=== PATIENT | female | born 1960 | race Caucasian/White ===

== ENCOUNTER 2020-08-24 13:48 | Inpatient (IN) | payer OTHER ==
[~2020-08-24] VITALS: Ht 160 cm; Wt 33.6 kg
--- NOTE | 2020-08-24 14:37 | Emergency Room Report ---
History of Present Illness General Chief Complaint: Abnormal Labs Source: Patient, Medical Record, EMS Present Illness HPI Disclaimer: Please note that this report is being documented using idioON technology. This can lead to erroneous entry secondary to incorrect interpretation by the dictating instrument. HPI: 60-year-old female presents from nursing facility for evaluation of anemia. Patient has a history of chronic anemia has required transfusion in the past. Reportedly hemoglobin is 7.1 based on recent labs. She was negative for COVID- 19 on 08/19/2020 according to accompanying paperwork. History of hypertension, GERD, peripheral neuropathy and nicotine dependence. Denies fall, pain or injury. Does not take blood thinners. She does have chronic bleeding from a persistent open wound over the past 2 years of the left ear. This is intermittent and denies any long-term bleeding events. 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 EOMI. Cardiovascular: RRR. S1 and S2 normal. No murmur appreciated Resp: Normal work of breathing. No cough, wheezing or crackles appreciated Abdomen: Abdomen is soft, nondistended. Nontender Skin: There is an abrasion over the left earlobe. Hemostatic MSK: Normal tone and bulk. Moving all extremities. No obvious deformity. Neuro: Awake and alert. Mentating appropriately. Procedures Critical Care Time Critical Care Time Total critical care time: Approximately 45 minutes Due to a high probability of clinically significant, life threatening deterioration, the patient required the highest level of preparedness to intervene emergently and I personally spent this critical care time directly and personally managing the patient. This critical care time included obtaining a history, examining the patient, pulse oximetry, ordering and reviewing studies, ordering treatments, evaluating response to treatment and updating management plan as needed, frequent reassessment and discussion with other providers as well as arranging for ultimate disposition. This critical to care time was performed to assess and manage the high probability of life-threatening deterioration that could result in multiorgan failure. This critical care time is separate from the separately billable procedures and treating other patients. Medical Decision Making Diagnostic Impression: Primary Impression: Acute anemia Additional Impression: UTI (urinary tract infection) ER Course 60-year-old female presents for anemia requiring transfusion. Vital signs stable on arrival and no evidence of active bleeding. Hemoglobin is low and will order 2 units for transfusion. Concern for urinary tract infection as well. Treated ceftriaxone. Admitted to her PMD, Dr. Martinez. Laboratory Tests Test 08/24/20 15:10 08/24/20 16:45 White Blood Count 4.7 K/UL (4.8-10.8) L Red Blood Count 2.72 M/UL (4.20-5.40) L Hemoglobin 7.6 G/DL (12.0-16.0) L Hematocrit 23.8 % (37.0-47.0) L Mean Corpuscular Volume 88 FL (80-99) Mean Corpuscular Hemoglobin 27.9 PG (27.0-31.0) Mean Corpuscular Hemoglobin Concent 31.9 G/DL (32.0-36.0) L Red Cell Distribution Width 16.4 % (11.6-14.8) H Platelet Count 425 K/UL (150-450) Mean Platelet Volume 5.1 FL (6.5-10.1) L Neutrophils (%) (Auto) % (45.0-75.0) Lymphocytes (%) (Auto) % (20.0-45.0) Monocytes (%) (Auto) % (1.0-10.0) Eosinophils (%) (Auto) % (0.0-3.0) Basophils (%) (Auto) % (0.0-2.0) Differential Total Cells Counted 100 Neutrophils % (Manual) 59 % (45-75) Lymphocytes % (Manual) 34 % (20-45) Monocytes % (Manual) 2 % (1-10) Eosinophils % (Manual) 3 % (0-3) Basophils % (Manual) 0 % (0-2) Band Neutrophils 2 % (0-8) Platelet Estimate Increased H Platelet Morphology Normal Hypochromasia 1+ Anisocytosis 1+ Prothrombin Time 10.8 SEC (9.30-11.50) Prothrombin Time INR 1.0 (0.9-1.1) Activated Partial Thromboplast Time 27 SEC (23-33) Sodium Level 143 MMOL/L (136-145) Potassium Level 4.5 MMOL/L (3.5-5.1) Chloride Level 113 MMOL/L (98-107) H Carbon Dioxide Level 23 MMOL/L (21-32) Anion Gap 7 mmol/L (5-15) Blood Urea Nitrogen 25 mg/dL (7-18) H Creatinine 1.0 MG/DL (0.55-1.30) Estimated Glomerular Filtration Rate 56.2 mL/min (>60) Glucose Level 113 MG/DL (74-106) H Calcium Level 8.0 MG/DL (8.5-10.1) L Iron Level 86 ug/dL (50-175) Total Iron Binding Capacity 196 ug/dL (250-450) L Percent Iron Saturation 44 % (15-50) Unsaturated Iron Binding 110 ug/dL (112-346) L Total Bilirubin 0.2 MG/DL (0.2-1.0) Aspartate Amino Transferase (AST) 19 U/L (15-37) Alanine Aminotransferase (ALT) 26 U/L (12-78) Alkaline Phosphatase 109 U/L (46-116) Total Protein 7.7 G/DL (6.4-8.2) Albumin 1.4 G/DL (3.4-5.0) L Globulin 6.3 g/dL Albumin/Globulin Ratio 0.2 (1.0-2.7) L Lipase 116 U/L (73-393) Urine Color Pale yellow Urine Appearance Cloudy Urine pH 6 (4.5-8.0) Urine Specific [place] 1.015 (1.005-1.035) Urine Protein 2+ (NEGATIVE) H Urine Glucose (UA) Negative (NEGATIVE) Urine Ketones Negative (NEGATIVE) Urine Blood 3+ (NEGATIVE) H Urine Nitrite Positive (NEGATIVE) H Urine Bilirubin Negative (NEGATIVE) Urine Urobilinogen Normal MG/DL (0.0-1.0) Urine Leukocyte Esterase 3+ (NEGATIVE) H Urine RBC 15-20 /HPF (0 - 2) H Urine WBC Tntc /HPF (0 - 2) H Urine Squamous Epithelial Cells Moderate /LPF (NONE/OCC) H Urine Bacteria Many /HPF (NONE) H Last Vital Signs Date Time Temp Pulse Resp B/P (MAP) Pulse Ox O2 Delivery O2 Flow Rate FiO2 08/24/20 13:48 98.1 71 16 102/64 (77) 99 Room Air Disposition: ADMITTED INPATIENT Condition: Stable John Noland MD Aug 24, 2020 14:37
[2020-08-24] MEDS ORDERED: MULTIPLE VITAM1 EAC6 PO (14:58)
[2020-08-24] MEDS ORDERED: MIRTAZAPINE7.5 MG ORAL (14:58)
[2020-08-24] MEDS ORDERED: FLUOCINONIDE-E15 G1 TP (14:58)
[2020-08-24] MEDS ORDERED: SENNA LAXATIVE8.6 MG PO (14:58)
[2020-08-24] MEDS ORDERED: ACETAMINOPHEN325 M1 ORAL (14:58)
[2020-08-24] MEDS ORDERED: DOCUSATE SODIU100 MG ORAL (14:58)
[2020-08-24] MEDS ORDERED: TRIAMCINOLONE A15 G2 TP (14:58)
[2020-08-24] MEDS ORDERED: GABAPENTIN100 MG ORAL (14:58)
[2020-08-24] MEDS ORDERED: AQUAPHOR99 GM TP (14:58)
[2020-08-24] MEDS ORDERED: VITAMIN B-1100 MG ORAL (14:58)
[2020-08-24] MEDS ORDERED: MIRALAX17 G2 ORAL (14:58)
[2020-08-24] MEDS ORDERED: DIPHENHYDRAMINE25 M1 ORAL (14:58)
[2020-08-24] MEDS ORDERED: OXYCODONE HCL5 M2 ORAL (14:58)
[2020-08-24] MEDS ORDERED: ATIVAN0.5 MG ORAL (14:58)
[2020-08-24] MEDS ORDERED: ZOFRAN4 M3 ORAL (14:58)
[2020-08-24] MEDS ORDERED: FAMOTIDINE20 MG ORAL (14:58)
[2020-08-24 15:36] LABS: POTASSIUM 4.5 MMOL/L (3.5-5.1)
[2020-08-24 15:39] LABS: HEMATOCRIT 23.8 % (37.0-47.0); HEMOGLOBIN 7.6 G/DL (12.0-16.0); MEAN CORPUSCULAR VOLUME 88 FL (80-99); PLATELET COUNT 425 K/UL (150-450); RED BLOOD COUNT 2.72 M/UL (4.20-5.40); RED CELL DISTRIBUTION WIDTH 16.4 % (11.6-14.8); WHITE BLOOD COUNT 4.7 K/UL (4.8-10.8)
[2020-08-24 15:40] LABS: ALBUMIN 1.4 G/DL (3.4-5.0); ALBUMIN/GLOBULIN RATIO 0.2 (1.0-2.7); BILIRUBIN,TOTAL 0.2 MG/DL (0.2-1.0)
[2020-08-24 15:44] LABS: % IRON SATURATION 44 % (15-50); IRON 86 ug/dL (50-175); TOTAL IRON BINDING CAPACITY 196 ug/dL (250-450)
[2020-08-24 15:51] VITALS: BP 124/86
--- NOTE | 2020-08-24 17:01 | History and Physical ---
History of Present Illness General Date patient seen: Aug 24, 2020 Time patient seen: 17:01 Reason for Hospitalization: Abnormal Labs Present Illness HPI 60-year-old female presents from nursing facility for evaluation of anemia. Patient has a history of chronic anemia, left ear wound with chronic blood loss, hypertension, GERD, peripheral neuropathy and nicotine dependence. Reportedly hemoglobin is 7.1 based on recent labs. She does complain of general weakness, fatigue and light headedness. In ED she was found to have Hb of 7.6, ordered for 2 units of RBC and referred for medical admission. FHx: No premature CAD SHx: SNF resident Allergies: Coded Allergies: MORPHINE (Verified Allergy, Unknown, 08/24/20) SULFAMETHOXAZOLE (Verified Allergy, Unknown, 08/24/20) TRIMETHOPRIM (Verified Allergy, Unknown, 08/24/20) COVID-19 Screening Contact w/high risk pt: No Recent Travel to affected area: No Experienced COVID-19 symptoms?: No Medication History Scheduled Docusate Sodium* (Docusate Sodium*), 100 MG ORAL TWICE A DAY, (Reported) Famotidine* (Pepcid 20mg tablet*), 20 MG ORAL TWICE A DAY, (Reported) Fluocinonide/Emollient (Fluocinonide-E 0.05% Cream), 15 GM TP DAILY, (Reported) Gabapentin* (Gabapentin*), 300 MG ORAL THREE TIMES A DAY, (Reported) Lorazepam* (Ativan*), 0.5 MG ORAL Q4HR, (Reported) Mirtazapine* (Mirtazapine*), 7.5 MG ORAL BEDTIME, (Reported) Multivitamin (Multiple Vitamins), 1 EACH PO DAILY, (Reported) Petrolatum,White (Aquaphor), 99 GM TP Q6HR, (Reported) Polyethylene Glycol 3350* (Miralax*), 17 GM ORAL DAILY, (Reported) Sennosides (Senna Laxative), 17.2 MG PO BEDTIME, (Reported) Thiamine Hcl* (Vitamin B-1*), 200 MG ORAL DAILY, (Reported) Triamcinolone Acetonide (Triamcinolone Acetonide 0.1% Oint*), 0 TP THREE TIMES A DAY, (Reported) Scheduled PRN Acetaminophen* (Acetaminophen 325MG Tablet*), 650 MG ORAL Q4H PRN for fever, (Reported) Diphenhydramine Hcl* (Diphenhydramine Hcl*), 25 MG ORAL Q6H PRN for Itching, (Reported) Ondansetron* (Zofran*), 4 MG ORAL Q8HR PRN for Nausea & Vomiting, (Reported) Oxycodone Hcl* (Oxycodone Hcl*), 5 MG ORAL Q4H PRN for For Pain, (Reported) Patient History Healthcare decision maker Resuscitation status Advanced Directive on File Review of Systems Constitutional: Reports: weakness; Denies: chills, sweats Respiratory: Denies: cough Cardiovascular: Denies: chest pain Gastrointestinal: Denies: abdominal pain Musculoskeletal: Denies: back pain Skin: Denies: rash Hematologic/Lymphatic: Reports: anemia, easy bleeding Physical Exam General Appearance: alert, alert oriented x3, other - Malnourished with bitemporal wasting HEENT: other - Left ear chronic wound Neck: supple, normal inspection Respiratory/Chest: lungs clear, normal breath sounds, no respiratory distress Cardiovascular/Chest: normal rate, regular rhythm Abdomen: non tender, soft Extremities: non-tender, normal inspection Neurologic: video intern II-XII grossly normal, no motor/sensory deficits, alert Last 24 Hour Vital Signs Date Time Temp Pulse Resp B/P (MAP) Pulse Ox O2 Delivery O2 Flow Rate FiO2 08/24/20 15:51 76 18 124/86 100 Room Air 08/24/20 13:48 98.1 71 16 102/64 (77) 99 Room Air Laboratory Tests Test 08/24/20 15:10 White Blood Count 4.7 K/UL (4.8-10.8) L Red Blood Count 2.72 M/UL (4.20-5.40) L Hemoglobin 7.6 G/DL (12.0-16.0) L Hematocrit 23.8 % (37.0-47.0) L Mean Corpuscular Volume 88 FL (80-99) Mean Corpuscular Hemoglobin 27.9 PG (27.0-31.0) Mean Corpuscular Hemoglobin Concent 31.9 G/DL (32.0-36.0) L Red Cell Distribution Width 16.4 % (11.6-14.8) H Platelet Count 425 K/UL (150-450) Mean Platelet Volume 5.1 FL (6.5-10.1) L Neutrophils (%) (Auto) % (45.0-75.0) Lymphocytes (%) (Auto) % (20.0-45.0) Monocytes (%) (Auto) % (1.0-10.0) Eosinophils (%) (Auto) % (0.0-3.0) Basophils (%) (Auto) % (0.0-2.0) Differential Total Cells Counted 100 Neutrophils % (Manual) 59 % (45-75) Lymphocytes % (Manual) 34 % (20-45) Monocytes % (Manual) 2 % (1-10) Eosinophils % (Manual) 3 % (0-3) Basophils % (Manual) 0 % (0-2) Band Neutrophils 2 % (0-8) Platelet Estimate Increased H Platelet Morphology Normal Hypochromasia 1+ Anisocytosis 1+ Prothrombin Time 10.8 SEC (9.30-11.50) Prothromb Time International Ratio 1.0 (0.9-1.1) Activated Partial Thromboplast Time 27 SEC (23-33) Sodium Level 143 MMOL/L (136-145) Potassium Level 4.5 MMOL/L (3.5-5.1) Chloride Level 113 MMOL/L (98-107) H Carbon Dioxide Level 23 MMOL/L (21-32) Anion Gap 7 mmol/L (5-15) Blood Urea Nitrogen 25 mg/dL (7-18) H Creatinine 1.0 MG/DL (0.55-1.30) Estimat Glomerular Filtration Rate 56.2 mL/min (>60) Glucose Level 113 MG/DL (74-106) H Calcium Level 8.0 MG/DL (8.5-10.1) L Iron Level 86 ug/dL (50-175) Total Iron Binding Capacity 196 ug/dL (250-450) L Percent Iron Saturation 44 % (15-50) Unsaturated Iron Binding 110 ug/dL (112-346) L Total Bilirubin 0.2 MG/DL (0.2-1.0) Aspartate Amino Transf (AST/SGOT) 19 U/L (15-37) Alanine Aminotransferase (ALT/SGPT) 26 U/L (12-78) Alkaline Phosphatase 109 U/L (46-116) Total Protein 7.7 G/DL (6.4-8.2) Albumin 1.4 G/DL (3.4-5.0) L Globulin 6.3 g/dL Albumin/Globulin Ratio 0.2 (1.0-2.7) L Lipase 116 U/L (73-393) Height (Feet): 5 Height (Inches): 2.00 Weight (Pounds): 90 Assessment/Plan Assessment/Plan: 60-year-old female presents from nursing facility for evaluation of acute (symptomatic) on chronic anemia #Symptomatic acute on chronic anemia #Possibly related to chronic blood loss from left ear wound -admit to medical service -getting 2 units RBC in ED -monitor CBC -PT/OT eval -Fall and aspiration precautions #Chronic pain #Peripheral neuropathy -cont outpatient pain regimen #Bitemporal wasting, hypoalbuminemia #Severe protein calorie malnutrition -RD eval -Ensure TID I [id number] on this patient's case, and 20minutes was dedicated to counseling and/or care coordination. D/w RN, consultants Flaquito Villanueva MD Aug 24, 2020 17:01
[2020-08-24] MEDS ORDERED: LORazepam 0.5mg tab ORAL PRN (17:15)
[2020-08-24 17:30] VITALS: BP 110/89
--- NOTE | 2020-08-24 17:37 | NUR ---
pt arrived for low H&H. pt A&Ox4, VSS. pt placed in private room on continuous cardiac/O2 monitor. pt has 2 IVs placed, labs sent. pt integumentary skin present with scabs all over body from itching per pt. pt in bed, resting. states pain in skin. notified. repeat pink top sent to lab per lab request.
[2020-08-24 17:46] LABS: APPEARANCE,URINE CLOUDY; BILIRUBIN, URINE NEGATIVE (NEGATIVE); COLOR,URINE PALE YELLOW; GLUCOSE, URINE (UA) NEGATIVE (NEGATIVE); KETONES,URINE NEGATIVE (NEGATIVE); LEUKOCYTE ESTERASE ,URINE 3+ (NEGATIVE); NITRITE,URINE POSITIVE (NEGATIVE); PH,URINE 6 (4.5-8.0); PROTEIN,URINE 2+ (NEGATIVE); UROBILINOGEN,URINE NORMAL MG/DL (0.0-1.0)
[2020-08-24] MEDS ORDERED: cefTRIAXone 1 GM in NS 55 ML IVPB ONE (18:00)
[2020-08-24 19:00] VITALS: BP 104/78
--- NOTE | 2020-08-24 19:08 | NUR ---
blood transfusion started at 1899. cosign with Sondra MCNAIR. pt on continuous cardiac/O2 monitor. pt & MD signed consent. blood picked up and verified with lab. 1899 vitals: temp 98.7, HR 78, O2 100% RA, BP 104/78
[2020-08-24 19:15] VITALS: BP 103/61
[2020-08-24 20:30] VITALS: BP 101/54
--- NOTE | 2020-08-24 20:30 | NUR ---
TRANSFER TO FLOOR: Patient transferred to [facility] as ordered, per MD . Report given to Ok. Belongings sent with patient belongings form filled and signed
[2020-08-24] MEDS: Docusate 100mg cap ORAL SCH (21:17)
[2020-08-24] MEDS: Morphine Sulfate 2mg/ml Inj(IV/IM USE ONLY) IVP PRN (22:08)
[2020-08-25] VITALS: BP 130/76
[2020-08-25] MEDS: Morphine Sulfate 2mg/ml Inj(IV/IM USE ONLY) IVP PRN (02:50)
[2020-08-25 04:00] VITALS: BP 130/73
[2020-08-25 06:48] LABS: BASOPHILS % (AUTO) 0.9 % (0.0-2.0); EOSINOPHILS % (AUTO) 1.6 % (0.0-3.0); HEMATOCRIT 36.1 % (37.0-47.0); HEMOGLOBIN 11.7 G/DL (12.0-16.0); LYMPHOCYTES % (AUTO) 15.5 % (20.0-45.0); MEAN CORPUSCULAR VOLUME 88 FL (80-99); NEUTROPHILS % (AUTO) 75.1 % (45.0-75.0); PLATELET COUNT 378 K/UL (150-450); RED BLOOD COUNT 4.12 M/UL (4.20-5.40); WHITE BLOOD COUNT 7.6 K/UL (4.8-10.8)
[2020-08-25 06:51] LABS: ANION GAP 7 mmol/L (5-15); BLOOD UREA NITROGEN 20 mg/dL (7-18); CALCIUM 8.3 MG/DL (8.5-10.1); CARBON DIOXIDE 23 MMOL/L (21-32); CHLORIDE 112 MMOL/L (98-107); CREATININE 0.8 MG/DL (0.55-1.30); POTASSIUM 4.1 MMOL/L (3.5-5.1); SODIUM 141 MMOL/L (136-145)
--- NOTE | 2020-08-25 07:00 | NUR ---
nurse notes received patient in bed, asleep no sign of distress, on fall precaution call light w/n reach, will continue to monitor patient condition XU montemayor
--- NOTE | 2020-08-25 07:14 | NUR ---
NURSE HAND-OFF: Important Events on Shift:[]2 units PRBC transfused Patient Status: [] Diet: []Regular Pending Orders: [] Pending Results/Labs:[] Pending MD notification:[] Latest Vital Signs: Temperature 98.5 , Pulse 86 , B/P 130 /73 , Respiratory Rate 20 , O2 SAT 94 , Room Air, O2 Flow Rate . Vital Sign Comment: [] Latest Junior Fall Score: 45 Fall Risk: High Risk Safety Measures: Call light Within Reach, Bed Alarm Zone 2, Side Rails Side Rails x2, Bed position Low and Locked. Fall Precautions: Yellow Socks Report given to [].
--- NOTE | 2020-08-25 07:28 | General Progress Note ---
Subjective ROS Limited/Unobtainable: Yes Allergies: Coded Allergies: MORPHINE (Verified Allergy, Unknown, 08/24/20) SULFAMETHOXAZOLE (Verified Allergy, Unknown, 08/24/20) TRIMETHOPRIM (Verified Allergy, Unknown, 08/24/20) Objective Last 24 Hour Vital Signs Date Time Temp Pulse Resp B/P (MAP) Pulse Ox O2 Delivery O2 Flow Rate FiO2 08/25/20 04:00 98.5 86 20 130/73 (92) 94 08/25/20 03:20 98.5 08/25/20 00:00 98.5 86 18 130/76 (94) 99 08/24/20 22:40 98.4 08/24/20 21:07 Room Air 08/24/20 20:30 98.4 82 18 101/54 (70) 99 08/24/20 19:15 98.7 83 18 103/61 99 Room Air 08/24/20 19:15 83 18 103/61 99 Room Air 08/24/20 19:00 98.7 78 18 104/78 100 Room Air 08/24/20 17:30 76 18 110/89 100 Room Air 08/24/20 15:51 76 18 124/86 100 Room Air 08/24/20 13:48 98.1 71 16 102/64 (77) 99 Room Air Intake and Output 08/24/20 08/25/20 19:00 07:00 Intake Total 500 ml Balance 500 ml Intake Oral 0 ml Blood Product 500 ml # Voids 2 Laboratory Tests 08/24/20 15:10: White Blood Count 4.7L, Red Blood Count 2.72L, Hemoglobin 7.6L, Hematocrit 23.8L , Mean Corpuscular Volume 88, Mean Corpuscular Hemoglobin 27.9, Mean Corpuscular Hemoglobin Concent 31.9L, Red Cell Distribution Width 16.4H, Platelet Count 425, Mean Platelet Volume 5.1L, Neutrophils (%) (Auto) , Lymphocytes (%) (Auto) , Monocytes (%) (Auto) , Eosinophils (%) (Auto) , Basophils (%) (Auto) , Differential Total Cells Counted 100, Neutrophils % (Manual) 59, Lymphocytes % (Manual) 34, Monocytes % (Manual) 2, Eosinophils % (Manual) 3, Basophils % (Manual) 0, Band Neutrophils 2, Platelet Estimate IncreasedH, Platelet Morphology Normal, Hypochromasia 1+, Anisocytosis 1+, Prothrombin Time 10.8, Pr othromb Time International Ratio 1.0, Activated Partial Thromboplast Time 27, Sodium Level 143, Potassium Level 4.5, Chloride Level 113H, Carbon Dioxide Level 23, Anion Gap 7, Blood Urea Nitrogen 25H, Creatinine 1.0, Estimat Glomerular Filtration Rate 56.2, Glucose Level 113H, Calcium Level 8.0L, Iron Level 86, Total Iron Binding Capacity 196L, Percent Iron Saturation 44, Unsaturated Iron Binding 110L, Total Bilirubin 0.2, Aspartate Amino Transf (AST/SGOT) 19, Alanine Aminotransferase (ALT/SGPT) 26, Alkaline Phosphatase 109, Total Protein 7.7, Albumin 1.4L, Globulin 6.3, Albumin/Globulin Ratio 0.2L, Lipase 116 08/24/20 16:45: Urine Color Pale yellow, Urine Appearance Cloudy, Urine pH 6, Urine Specific [place] 1.015, Urine Protein 2+H, Urine Glucose (UA) Negative, Urine Ketones Negative, Urine Blood 3+H, Urine Nitrite PositiveH, Urine Bilirubin Negative, Urine Urobilinogen Normal, Urine Leukocyte Esterase 3+H, Urine RBC 15-20H, Urine WBC TntcH, Urine Squamous Epithelial Cells ModerateH, Urine Bacteria ManyH 08/25/20 05:05: White Blood Count 7.6#, Red Blood Count 4.12L, Hemoglobin 11.7#L, Hematocrit 36.1#L, Mean Corpuscular Volume 88, Mean Corpuscular Hemoglobin 28.5, Mean Corpuscular Hemoglobin Concent 32.5, Red Cell Distribution Width 15.0H, Platelet Count 378, Mean Platelet Volume 4.5L, Neutrophils (%) (Auto) 75.1H, Lymphocytes (%) (Auto) 15.5L, Monocytes (%) (Auto) 7.0, Eosinophils (%) (Auto) 1.6, Basophils (%) (Auto) 0.9, Sodium Level 141, Potassium Level 4.1, Chloride Level 112H, Carbon Dioxide Level 23, Anion Gap 7, Blood Urea Nitrogen 20H, Creatinine 0.8, Estimat Glomerular Filtration Rate > 60, Glucose Level 73L, Calcium Level 8.3L Height (Feet): 5 Height (Inches): 3.00 Weight (Pounds): 74 General Appearance: alert EENT: normal ENT inspection Neck: supple Cardiovascular: normal rate Respiratory/Chest: decreased breath sounds Abdomen: hypoactive bowel sounds Extremities: non-tender Assessment/Plan Problem List: (1) GERD (gastroesophageal reflux disease) ICD Codes: K21.9 - Gastro-esophageal reflux disease without esophagitis SNOMED: 603262813 (2) Cachexia ICD Codes: R64 - Cachexia SNOMED: 981081616 (3) Neuropathy ICD Codes: G62.9 - Polyneuropathy, unspecified SNOMED: 591258057 (4) Acute anemia ICD Codes: D64.9 - Anemia, unspecified SNOMED: 5355682, 197947681 (5) UTI (urinary tract infection) ICD Codes: N39.0 - Urinary tract infection, site not specified SNOMED: 88315480 Assessment/Plan: cea plan EGd and colonoscopy stool ob s/p blood transfusion abx for UTI plan CT if esophagogastroduodenoscopy and ccolonoscopy is neg James Alejandre MD Aug 25, 2020 07:28
[2020-08-25] MEDS ORDERED: Piperacillin/Tazobactam 2.25 GM in D5W 55 ML IV SCH (07:30)
[2020-08-25 08:00] VITALS: BP 143/83
[2020-08-25] MEDS: Docusate 100mg cap ORAL SCH ×2 (08:31→20:43)
[2020-08-25] MEDS: Thiamine 100mg tab ORAL SCH (08:32)
[2020-08-25] MEDS: HYDROmorphone 2mg tab ORAL PRN ×3 (08:33→18:00)
[2020-08-25] MEDS: Zoysn 3.37gm in NS 100ML IVPB SCH ×2 (08:33→17:23)
--- NOTE | 2020-08-25 09:25 | NUR ---
PT NOTE Attempted to see patient for PT evaluation. Patient declining to participate with PT due to c/o headache, requesting that therapist return tomorrow. Saumya RN notified, will follow up tomorrow.
--- NOTE | 2020-08-25 09:47 | Consultation ---
History of Present Illness General Date patient seen: Aug 25, 2020 Reason for Hospitalization: Abnormal Labs Present Illness HPI HPI: 60-year-old female presents from nursing facility for evaluation of anemia, generalized pain, abd pain, face pain, headache. Patient has a history of chronic anemia has required transfusion in the past. Reportedly hemoglobin is 7.1 based on recent labs. She was negative for COVID-19 on 08/19/2020 according to accompanying paperwork. History of hypertension, GERD, peripheral neuropathy and nicotine dependence. Denies fall, pain or injury. Does not take blood thinners. She does have chronic bleeding from a persistent open wound over the past 2 years of the left ear. This is intermittent and denies any long-term bleeding events. states she needs more pain medication than the pills. no n/v/f/c. tolerating diet. states 8/10 abd pain cramping generalized. pain ongoing for long time chronic. +flatus. and bm. surgery called to evaluate and assist with care. PMH: GERD, hypertension, anemia, peripheral neuropathy PSH: Reviewed Allergies: Reviewed Social Hx: Reviewed Allergies: Coded Allergies: MORPHINE (Verified Allergy, Unknown, 08/24/20) SULFAMETHOXAZOLE (Verified Allergy, Unknown, 08/24/20) TRIMETHOPRIM (Verified Allergy, Unknown, 08/24/20) COVID-19 Screening Contact w/high risk pt: No Recent Travel to affected area: No Experienced COVID-19 symptoms?: No Medication History Scheduled Docusate Sodium* (Docusate Sodium*), 100 MG ORAL TWICE A DAY, (Reported) Famotidine* (Pepcid 20mg tablet*), 20 MG ORAL TWICE A DAY, (Reported) Fluocinonide/Emollient (Fluocinonide-E 0.05% Cream), 15 GM TP DAILY, (Reported) Gabapentin* (Gabapentin*), 300 MG ORAL THREE TIMES A DAY, (Reported) Lorazepam* (Ativan*), 0.5 MG ORAL Q4HR, (Reported) Mirtazapine* (Mirtazapine*), 7.5 MG ORAL BEDTIME, (Reported) Multivitamin (Multiple Vitamins), 1 EACH PO DAILY, (Reported) Petrolatum,White (Aquaphor), 99 GM TP Q6HR, (Reported) Polyethylene Glycol 3350* (Miralax*), 17 GM ORAL DAILY, (Reported) Sennosides (Senna Laxative), 17.2 MG PO BEDTIME, (Reported) Thiamine Hcl* (Vitamin B-1*), 200 MG ORAL DAILY, (Reported) Triamcinolone Acetonide (Triamcinolone Acetonide 0.1% Oint*), 0 TP THREE TIMES A DAY, (Reported) Scheduled PRN Acetaminophen* (Acetaminophen 325MG Tablet*), 650 MG ORAL Q4H PRN for fever, (Reported) Diphenhydramine Hcl* (Diphenhydramine Hcl*), 25 MG ORAL Q6H PRN for Itching, (Reported) Ondansetron* (Zofran*), 4 MG ORAL Q8HR PRN for Nausea & Vomiting, (Reported) Oxycodone Hcl* (Oxycodone Hcl*), 5 MG ORAL Q4H PRN for For Pain, (Reported) Patient History History Provided By: Patient, Medical Record, PMD Healthcare decision maker N Resuscitation status Advanced Directive on File Past Medical/Surgical History Past Medical/Surgical History: (1) UTI (urinary tract infection) (2) Cachexia (3) Neuropathy (4) GERD (gastroesophageal reflux disease) (5) Acute anemia Review of Systems Review of Symptoms General ROS: no weight loss or fever Psychological ROS: no depression or mood changes, no memory loss Ophthalmic ROS: no visual changes or eye irritation ENT ROS: no nasal congestion, hearing loss, dizziness Allergy and Immunology ROS: no allergic symptoms or urticaria Hematological and Lymphatic ROS: no swollen glands, unusual bleeding or bruising Endocrine ROS: no polyuria, polydipsia, weight changes, temperature intolerance Respiratory ROS: no cough, shortness of breath, or wheezing Cardiovascular ROS: no chest pain or dyspnea on exertion Gastrointestinal ROS: denies abdominal pain, bright red blood in stool. Musculoskeletal ROS: no myalgias or arthralgias Neurological ROS: no TIA or stroke symptoms Dermatological ROS: no new or changing skin lesions, rashes or pruritis c/o pain "everywhere" Physical Exam Physical Exam General appearance: alert, cooperative, no distress, appears stated age Head: Normocephalic, without obvious abnormality, atraumatic Eyes: conjunctivae/corneas clear. PERRL, EOM's intact. Fundi benign Throat: Lips, mucosa, and tongue normal. Teeth and gums normal Neck: supple, symmetrical, trachea midline, no adenopathy, thyroid: not enlarged, symmetric, no tenderness/mass/nodules, no carotid bruit and no JVD Lungs: clear to auscultation bilaterally Heart: regular rate and rhythm, S1, S2 normal, no murmur, click, rub or gallop Abdomen: soft, non-tender. Bowel sounds normal. No masses, no organomegaly Extremities: extremities normal, atraumatic, no cyanosis or edema Pulses: 2+ and symmetric Skin: Skin color, texture, turgor normal. No rashes or lesions Neurologic: Grossly normal Last 24 Hour Vital Signs Date Time Temp Pulse Resp B/P (MAP) Pulse Ox O2 Delivery O2 Flow Rate FiO2 08/25/20 04:00 98.5 86 20 130/73 (92) 94 08/25/20 03:20 98.5 08/25/20 00:00 98.5 86 18 130/76 (94) 99 08/24/20 22:40 98.4 08/24/20 21:07 Room Air 08/24/20 20:30 98.4 82 18 101/54 (70) 99 08/24/20 19:15 98.7 83 18 103/61 99 Room Air 08/24/20 19:15 83 18 103/61 99 Room Air 08/24/20 19:00 98.7 78 18 104/78 100 Room Air 08/24/20 17:30 76 18 110/89 100 Room Air 08/24/20 15:51 76 18 124/86 100 Room Air 08/24/20 13:48 98.1 71 16 102/64 (77) 99 Room Air Intake and Output 08/24/20 08/25/20 19:00 07:00 Intake Total 500 ml Balance 500 ml Intake Oral 0 ml Blood Product 500 ml # Voids 2 Laboratory Tests Test 08/24/20 15:10 08/24/20 16:45 08/25/20 05:05 White Blood Count 4.7 K/UL (4.8-10.8) L 7.6 K/UL (4.8-10.8) # Red Blood Count 2.72 M/UL (4.20-5.40) L 4.12 M/UL (4.20-5.40) L Hemoglobin 7.6 G/DL (12.0-16.0) L 11.7 G/DL (12.0-16.0) #L Hematocrit 23.8 % (37.0-47.0) L 36.1 % (37.0-47.0) #L Mean Corpuscular Volume 88 FL (80-99) 88 FL (80-99) Mean Corpuscular Hemoglobin 27.9 PG (27.0-31.0) 28.5 PG (27.0-31.0) Mean Corpuscular Hemoglobin Concent 31.9 G/DL (32.0-36.0) L 32.5 G/DL (32.0-36.0) Red Cell Distribution Width 16.4 % (11.6-14.8) H 15.0 % (11.6-14.8) H Platelet Count 425 K/UL (150-450) 378 K/UL (150-450) Mean Platelet Volume 5.1 FL (6.5-10.1) L 4.5 FL (6.5-10.1) L Neutrophils (%) (Auto) % (45.0-75.0) 75.1 % (45.0-75.0) H Lymphocytes (%) (Auto) % (20.0-45.0) 15.5 % (20.0-45.0) L Monocytes (%) (Auto) % (1.0-10.0) 7.0 % (1.0-10.0) Eosinophils (%) (Auto) % (0.0-3.0) 1.6 % (0.0-3.0) Basophils (%) (Auto) % (0.0-2.0) 0.9 % (0.0-2.0) Differential Total Cells Counted 100 Neutrophils % (Manual) 59 % (45-75) Lymphocytes % (Manual) 34 % (20-45) Monocytes % (Manual) 2 % (1-10) Eosinophils % (Manual) 3 % (0-3) Basophils % (Manual) 0 % (0-2) Band Neutrophils 2 % (0-8) Platelet Estimate Increased H Platelet Morphology Normal Hypochromasia 1+ Anisocytosis 1+ Prothrombin Time 10.8 SEC (9.30-11.50) Prothromb Time International Ratio 1.0 (0.9-1.1) Activated Partial Thromboplast Time 27 SEC (23-33) Sodium Level 143 MMOL/L (136-145) 141 MMOL/L (136-145) Potassium Level 4.5 MMOL/L (3.5-5.1) 4.1 MMOL/L (3.5-5.1) Chloride Level 113 MMOL/L (98-107) H 112 MMOL/L (98-107) H Carbon Dioxide Level 23 MMOL/L (21-32) 23 MMOL/L (21-32) Anion Gap 7 mmol/L (5-15) 7 mmol/L (5-15) Blood Urea Nitrogen 25 mg/dL (7-18) H 20 mg/dL (7-18) H Creatinine 1.0 MG/DL (0.55-1.30) 0.8 MG/DL (0.55-1.30) Estimat Glomerular Filtration Rate 56.2 mL/min (>60) > 60 mL/min (>60) Glucose Level 113 MG/DL (74-106) H 73 MG/DL (74-106) L Calcium Level 8.0 MG/DL (8.5-10.1) L 8.3 MG/DL (8.5-10.1) L Iron Level 86 ug/dL (50-175) Total Iron Binding Capacity 196 ug/dL (250-450) L Percent Iron Saturation 44 % (15-50) Unsaturated Iron Binding 110 ug/dL (112-346) L Total Bilirubin 0.2 MG/DL (0.2-1.0) Aspartate Amino Transf (AST/SGOT) 19 U/L (15-37) Alanine Aminotransferase (ALT/SGPT) 26 U/L (12-78) Alkaline Phosphatase 109 U/L (46-116) Total Protein 7.7 G/DL (6.4-8.2) Albumin 1.4 G/DL (3.4-5.0) L Globulin 6.3 g/dL Albumin/Globulin Ratio 0.2 (1.0-2.7) L Lipase 116 U/L (73-393) Urine Color Pale yellow Urine Appearance Cloudy Urine pH 6 (4.5-8.0) Urine Specific [place] 1.015 (1.005-1.035) Urine Protein 2+ (NEGATIVE) H Urine Glucose (UA) Negative (NEGATIVE) Urine Ketones Negative (NEGATIVE) Urine Blood 3+ (NEGATIVE) H Urine Nitrite Positive (NEGATIVE) H Urine Bilirubin Negative (NEGATIVE) Urine Urobilinogen Normal MG/DL (0.0-1.0) Urine Leukocyte Esterase 3+ (NEGATIVE) H Urine RBC 15-20 /HPF (0 - 2) H Urine WBC Tntc /HPF (0 - 2) H Urine Squamous Epithelial Cells Moderate /LPF (NONE/OCC) H Urine Bacteria Many /HPF (NONE) H Microbiology Date/Time Source Procedure Growth Status 08/24/20 16:45 Urine,Clean Catch Urine Culture - Preliminary Gram Negative Brodie Resulted Height (Feet): 5 Height (Inches): 3.00 Weight (Pounds): 74 Medications Current Medications Medications (Trade) Dose Ordered Sig/Crystal Route PRN Reason Start Time Stop Time Status Last Admin Dose Admin Acetaminophen (Tylenol) 650 mg Q4H PRN ORAL Mild Pain (Pain Scale 1-3) 08/24/20 17:00 09/23/20 16:59 Bisacodyl (Dulcolax) 10 mg HSPRN PRN RECTAL Constipation 08/24/20 17:00 11/22/20 16:59 Dextrose (Dextrose 50%) 25 ml Q30M PRN IV Hypoglycemia 08/24/20 17:00 11/22/20 16:59 Dextrose (Dextrose 50%) 50 ml Q30M PRN IV Hypoglycemia 08/24/20 17:00 11/22/20 16:59 Dextrose/ Electrolytes 1,000 ml @ 75 mls/hr [id number] IV 08/25/20 16:00 09/24/20 15:59 Diphenhydramine HCl (Benadryl) 25 mg Q6H PRN ORAL Itching/Pruritis 08/24/20 17:00 09/23/20 16:59 Docusate Sodium (Colace) 100 mg EVERY 12 HOURS ORAL 08/24/20 21:00 09/23/20 20:59 08/25/20 08:31 Gabapentin (Neurontin) 300 mg THREE TIMES A DAY ORAL 08/24/20 18:00 09/23/20 17:59 08/25/20 08:32 Hydromorphone HCl (Dilaudid) 2 mg Q4H PRN ORAL For Pain 08/25/20 07:30 09/01/20 07:29 08/25/20 08:33 Lorazepam (Ativan) 0.5 mg Q4H PRN ORAL Anxiety 08/24/20 17:15 08/31/20 17:14 Mirtazapine (Remeron) 7.5 mg BEDTIME ORAL 08/24/20 21:00 11/22/20 20:59 08/24/20 21:17 Ondansetron HCl (Zofran) 4 mg Q6H PRN IVP Nausea & Vomiting 08/24/20 17:00 09/23/20 16:59 Pantoprazole (Protonix) 40 mg DAILY ORAL 08/25/20 09:00 09/24/20 08:59 08/25/20 08:32 Piperacillin Sod/ Tazobactam Sod 3.375 gm/Sodium Chloride 110 ml @ 27.5 mls/hr Q8H IVPB 08/25/20 09:00 09/01/20 08:59 08/25/20 08:33 Polyethylene Glycol/ Electrolytes (Golytely) 4,000 ml ONCE ORAL 08/25/20 14:00 08/25/20 23:59 Temazepam (Restoril) 15 mg HSPRN PRN ORAL Insomnia 08/24/20 17:00 08/31/20 16:59 Thiamine HCl (Vitamin B1) 200 mg DAILY ORAL 08/25/20 09:00 09/24/20 08:59 08/25/20 08:32 Assessment/Plan Problem List: (1) Abdominal pain Assessment & Plan: 60F with anemia c/o pain all over including 8/10 abd pain requesting more pain medication IV instead of oral po meds. no n/v/f/c. hungry tolerating diet. passing flatus. transfused prbc and h/h improved. stool studies pending. GI eval noted. abd exam benign. no acute abdomen. soft nt/nd bs+. has bowel function. no acute surgical intervention planned. okay for diet. AM kub. trend labs. will follow with exam and recs. thank you ICD Codes: R10.9 - Unspecified abdominal pain SNOMED: 47256348 (2) UTI (urinary tract infection) ICD Codes: N39.0 - Urinary tract infection, site not specified SNOMED: 98185659 (3) Cachexia ICD Codes: R64 - Cachexia SNOMED: 864366183 (4) Neuropathy ICD Codes: G62.9 - Polyneuropathy, unspecified SNOMED: 719529983 (5) GERD (gastroesophageal reflux disease) ICD Codes: K21.9 - Gastro-esophageal reflux disease without esophagitis SNOMED: 880365060 (6) Acute anemia ICD Codes: D64.9 - Anemia, unspecified SNOMED: 9222400, 501835052 aRmos Nathan Aug 25, 2020 09:47
--- NOTE | 2020-08-25 10:08 | General Progress Note ---
Subjective Date patient seen: Aug 25, 2020 Time patient seen: 07:15 ROS Limited/Unobtainable: No Constitutional: Denies: chills, fever Cardiovascular: Denies: chest pain Respiratory: Denies: cough Gastrointestinal/Abdominal: Denies: abdomen distended, abdominal pain Allergies: Coded Allergies: MORPHINE (Verified Allergy, Unknown, 08/24/20) SULFAMETHOXAZOLE (Verified Allergy, Unknown, 08/24/20) TRIMETHOPRIM (Verified Allergy, Unknown, 08/24/20) Subjective No acute events overnight Asking for Dilaudid instead of morphine Got 2 units RBC with improvement in H&H ALso with abnormal UA and GNR on culture Objective Last 24 Hour Vital Signs Date Time Temp Pulse Resp B/P (MAP) Pulse Ox O2 Delivery O2 Flow Rate FiO2 08/25/20 04:00 98.5 86 20 130/73 (92) 94 08/25/20 03:20 98.5 08/25/20 00:00 98.5 86 18 130/76 (94) 99 08/24/20 22:40 98.4 08/24/20 21:07 Room Air 08/24/20 20:30 98.4 82 18 101/54 (70) 99 08/24/20 19:15 98.7 83 18 103/61 99 Room Air 08/24/20 19:15 83 18 103/61 99 Room Air 08/24/20 19:00 98.7 78 18 104/78 100 Room Air 08/24/20 17:30 76 18 110/89 100 Room Air 08/24/20 15:51 76 18 124/86 100 Room Air 08/24/20 13:48 98.1 71 16 102/64 (77) 99 Room Air Intake and Output0 08/24/20 08/25/20 19:00 07:00 Intake Total 500 ml Balance 500 ml Intake Oral 0 ml Blood Product 500 ml # Voids 2 Laboratory Tests 08/24/20 15:10: White Blood Count 4.7L, Red Blood Count 2.72L, Hemoglobin 7.6L, Hematocrit 23.8L , Mean Corpuscular Volume 88, Mean Corpuscular Hemoglobin 27.9, Mean Corpuscular Hemoglobin Concent 31.9L, Red Cell Distribution Width 16.4H, Platelet Count 425, Mean Platelet Volume 5.1L, Neutrophils (%) (Auto) , Lymphocytes (%) (Auto) , Monocytes (%) (Auto) , Eosinophils (%) (Auto) , Basophils (%) (Auto) , Differential Total Cells Counted 100, Neutrophils % (Manual) 59, Lymphocytes % (Manual) 34, Monocytes % (Manual) 2, Eosinophils % (Manual) 3, Basophils % (Manual) 0, Band Neutrophils 2, Platelet Estimate IncreasedH, Platelet Morphology Normal, Hypochromasia 1+, Anisocytosis 1+, Prothrombin Time 10.8, Prothromb Time International Ratio 1.0, Activated Partial Thromboplast Time 27, Sodium Level 143, Potassium Level 4.5, Chloride Level 113H, Carbon Dioxide Level 23, Anion Gap 7, Blood Urea Nitrogen 25H, Creatinine 1.0, Estimat Glomerular Filtration Rate 56.2, Glucose Level 113H, Calcium Level 8.0L, Iron Level 86, Total Iron Binding Capacity 196L, Percent Iron Saturation 44, Unsaturated Iron Binding 110L, Total Bilirubin 0.2, Aspartate Amino Transf (AST/SGOT) 19, Alanine Aminotransferase (ALT/SGPT) 26, Alkaline Phosphatase 109, Total Protein 7.7, Albumin 1.4L, Globulin 6.3, Albumin/Globulin Ratio 0.2L, Lipase 116 08/24/20 16:45: Urine Color Pale yellow, Urine Appearance Cloudy, Urine pH 6, Urine Specific [place] 1.015, Urine Protein 2+H, Urine Glucose (UA) Negative, Urine Ketones N egative, Urine Blood 3+H, Urine Nitrite PositiveH, Urine Bilirubin Negative, Urine Urobilinogen Normal, Urine Leukocyte Esterase 3+H, Urine RBC 15-20H, Urine WBC TntcH, Urine Squamous Epithelial Cells ModerateH, Urine Bacteria ManyH 08/25/20 05:05: White Blood Count 7.6#, Red Blood Count 4.12L, Hemoglobin 11.7#L, Hematocrit 36.1#L, Mean Corpuscular Volume 88, Mean Corpuscular Hemoglobin 28.5, Mean Corpuscular Hemoglobin Concent 32.5, Red Cell Distribution Width 15.0H, Platelet Count 378, Mean Platelet Volume 4.5L, Neutrophils (%) (Auto) 75.1H, Lymphocytes (%) (Auto) 15.5L, Monocytes (%) (Auto) 7.0, Eosinophils (%) (Auto) 1.6, Basophils (%) (Auto) 0.9, Sodium Level 141, Potassium Level 4.1, Chloride Level 112H, Carbon Dioxide Level 23, Anion Gap 7, Blood Urea Nitrogen 20H, Creatinine 0.8, Estimat Glomerular Filtration Rate > 60, Glucose Level 73L, Calcium Level 8.3L Height (Feet): 5 Height (Inches): 3.00 Weight (Pounds): 74 General Appearance: no apparent distress, alert Neck: normal alignment, supple Cardiovascular: normal rate, regular rhythm Respiratory/Chest: lungs clear, normal breath sounds Abdomen: non tender, soft Assessment/Plan Assessment/Plan: 60-year-old female presents from nursing facility for evaluation of acute (symptomatic) on chronic anemia #Symptomatic acute on chronic anemia, improved #Possibly related to chronic blood loss from left ear wound -continue inpatient care -s/p 2 units RBC -monitor CBC -PT/OT eval -Fall and aspiration precautions -Wound care eval for ear #Abnormal UA #Gram neg UTI -given ceftriaxone in ED -started Zosyn today -Follow up final urine culture #Chronic pain #Peripheral neuropathy -cont outpatient pain regimen -Morphine changed to Dilaudid #Bitemporal wasting, hypoalbuminemia #Severe protein calorie malnutrition -RD eval -Ensure TID I [id number] on this patient's case, and 20minutes was dedicated to counseling and/or care coordination. D/w RN, consultants Flaquito Villanueva MD Aug 25, 2020 10:08
--- NOTE | 2020-08-25 10:11 | Consultation ---
History of Present Illness General Chief Complaint: Abnormal Labs Present Illness HPI 60-year-old female presents from nursing facility for evaluation of anemia. Patient has a history of chronic anemia, left ear wound with chronic blood loss, hypertension, GERD, peripheral neuropathy and nicotine dependence. Reportedly hemoglobin is 7.1 based on recent labs. She does complain of general weakness, fatigue and light headedness. In ED she was found to have Hb of 7.6, ordered for 2 units of RBC and referred for medical admission. FHx: No premature CAD SHx: SNF resident Allergies: Coded Allergies: MORPHINE (Verified Allergy, Unknown, 08/24/20) SULFAMETHOXAZOLE (Verified Allergy, Unknown, 08/24/20) TRIMETHOPRIM (Verified Allergy, Unknown, 08/24/20) Medication History Scheduled Docusate Sodium* (Docusate Sodium*), 100 MG ORAL TWICE A DAY, (Reported) Famotidine* (Pepcid 20mg tablet*), 20 MG ORAL TWICE A DAY, (Reported) Fluocinonide/Emollient (Fluocinonide-E 0.05% Cream), 15 GM TP DAILY, (Reported) Gabapentin* (Gabapentin*), 300 MG ORAL THREE TIMES A DAY, (Reported) Lorazepam* (Ativan*), 0.5 MG ORAL Q4HR, (Reported) Mirtazapine* (Mirtazapine*), 7.5 MG ORAL BEDTIME, (Reported) Multivitamin (Multiple Vitamins), 1 EACH PO DAILY, (Reported) Petrolatum,White (Aquaphor), 99 GM TP Q6HR, (Reported) Polyethylene Glycol 3350* (Miralax*), 17 GM ORAL DAILY, (Reported) Sennosides (Senna Laxative), 17.2 MG PO BEDTIME, (Reported) Thiamine Hcl* (Vitamin B-1*), 200 MG ORAL DAILY, (Reported) Triamcinolone Acetonide (Triamcinolone Acetonide 0.1% Oint*), 0 TP THREE TIMES A DAY, (Reported) Scheduled PRN Acetaminophen* (Acetaminophen 325MG Tablet*), 650 MG ORAL Q4H PRN for fever, (Reported) Diphenhydramine Hcl* (Diphenhydramine Hcl*), 25 MG ORAL Q6H PRN for Itching, (Reported) Ondansetron* (Zofran*), 4 MG ORAL Q8HR PRN for Nausea & Vomiting, (Reported) Oxycodone Hcl* (Oxycodone Hcl*), 5 MG ORAL Q4H PRN for For Pain, (Reported) Patient History Healthcare decision maker N Resuscitation status Advanced Directive on File Review of Systems All Other Systems: negative except mentioned in HPI Physical Exam General Appearance: no apparent distress, alert Lines, tubes and drains: peripheral HEENT: normocephalic, atraumatic Neck: non-tender, normal alignment Respiratory/Chest: chest wall non-tender, lungs clear Cardiovascular/Chest: normal peripheral pulses, normal rate Abdomen: normal bowel sounds, non tender Extremities: normal range of motion, non-tender Skin Exam: normal pigmentation Neurologic: alert, oriented x 3 Last 24 Hour Vital Signs Date Time Temp Pulse Resp B/P (MAP) Pulse Ox O2 Delivery O2 Flow Rate FiO2 08/25/20 04:00 98.5 86 20 130/73 (92) 94 08/25/20 03:20 98.5 08/25/20 00:00 98.5 86 18 130/76 (94) 99 08/24/20 22:40 98.4 08/24/20 21:07 Room Air 08/24/20 20:30 98.4 82 18 101/54 (70) 99 08/24/20 19:15 98.7 83 18 103/61 99 Room Air 08/24/20 19:15 83 18 103/61 99 Room Air 08/24/20 19:00 98.7 78 18 104/78 100 Room Air 08/24/20 17:30 76 18 110/89 100 Room Air 08/24/20 15:51 76 18 124/86 100 Room Air 08/24/20 13:48 98.1 71 16 102/64 (77) 99 Room Air Intake and Output 08/24/20 08/25/20 19:00 07:00 Intake Total 500 ml Balance 500 ml Intake Oral 0 ml Blood Product 500 ml # Voids 2 Laboratory Tests Test 08/24/20 15:10 08/24/20 16:45 08/25/20 05:05 White Blood Count 4.7 K/UL (4.8-10.8) L 7.6 K/UL (4.8-10.8) # Red Blood Count 2.72 M/UL (4.20-5.40) L 4.12 M/UL (4.20-5.40) L Hemoglobin 7.6 G/DL (12.0-16.0) L 11.7 G/DL (12.0-16.0) #L Hematocrit 23.8 % (37.0-47.0) L 36.1 % (37.0-47.0) #L Mean Corpuscular Volume 88 FL (80-99) 88 FL (80-99) Mean Corpuscular Hemoglobin 27.9 PG (27.0-31.0) 28.5 PG (27.0-31.0) Mean Corpuscular Hemoglobin Concent 31.9 G/DL (32.0-36.0) L 32.5 G/DL (32.0-36.0) Red Cell Distribution Width 16.4 % (11.6-14.8) H 15.0 % (11.6-14.8) H Platelet Count 425 K/UL (150-450) 378 K/UL (150-450) Mean Platelet Volume 5.1 FL (6.5-10.1) L 4.5 FL (6.5-10.1) L Neutrophils (%) (Auto) % (45.0-75.0) 75.1 % (45.0-75.0) H Lymphocytes (%) (Auto) % (20.0-45.0) 15.5 % (20.0-45.0) L Monocytes (%) (Auto) % (1.0-10.0) 7.0 % (1.0-10.0) Eosinophils (%) (Auto) % (0.0-3.0) 1.6 % (0.0-3.0) Basophils (%) (Auto) % (0.0-2.0) 0.9 % (0.0-2.0) Differential Total Cells Counted 100 Neutrophils % (Manual) 59 % (45-75) Lymphocytes % (Manual) 34 % (20-45) Monocytes % (Manual) 2 % (1-10) Eosinophils % (Manual) 3 % (0-3) Basophils % (Manual) 0 % (0-2) Band Neutrophils 2 % (0-8) Platelet Estimate Increased H Platelet Morphology Normal Hypochromasia 1+ Anisocytosis 1+ Prothrombin Time 10.8 SEC (9.30-11.50) Prothromb Time International Ratio 1.0 (0.9-1.1) Activated Partial Thromboplast Time 27 SEC (23-33) Sodium Level 143 MMOL/L (136-145) 141 MMOL/L (136-145) Potassium Level 4.5 MMOL/L (3.5-5.1) 4.1 MMOL/L (3.5-5.1) Chloride Level 113 MMOL/L (98-107) H 112 MMOL/L (98-107) H Carbon Dioxide Level 23 MMOL/L (21-32) 23 MMOL/L (21-32) Anion Gap 7 mmol/L (5-15) 7 mmol/L (5-15) Blood Urea Nitrogen 25 mg/dL (7-18) H 20 mg/dL (7-18) H Creatinine 1.0 MG/DL (0.55-1.30) 0.8 MG/DL (0.55-1.30) Estimat Glomerular Filtration Rate 56.2 mL/min (>60) > 60 mL/min (>60) Glucose Level 113 MG/DL (74-106) H 73 MG/DL (74-106) L Calcium Level 8.0 MG/DL (8.5-10.1) L 8.3 MG/DL (8.5-10.1) L Iron Level 86 ug/dL (50-175) Total Iron Binding Capacity 196 ug/dL (250-450) L Percent Iron Saturation 44 % (15-50) Unsaturated Iron Binding 110 ug/dL (112-346) L Total Bilirubin 0.2 MG/DL (0.2-1.0) Aspartate Amino Transf (AST/SGOT) 19 U/L (15-37) Alanine Aminotransferase (ALT/SGPT) 26 U/L (12-78) Alkaline Phosphatase 109 U/L (46-116) Total Protein 7.7 G/DL (6.4-8.2) Albumin 1.4 G/DL (3.4-5.0) L Globulin 6.3 g/dL Albumin/Globulin Ratio 0.2 (1.0-2.7) L Lipase 116 U/L (73-393) Urine Color Pale yellow Urine Appearance Cloudy Urine pH 6 (4.5-8.0) Urine Specific [place] 1.015 (1.005-1.035) Urine Protein 2+ (NEGATIVE) H Urine Glucose (UA) Negative (NEGATIVE) Urine Ketones Negative (NEGATIVE) Urine Blood 3+ (NEGATIVE) H Urine Nitrite Positive (NEGATIVE) H Urine Bilirubin Negative (NEGATIVE) Urine Urobilinogen Normal MG/DL (0.0-1.0) Urine Leukocyte Esterase 3+ (NEGATIVE) H Urine RBC 15-20 /HPF (0 - 2) H Urine WBC Tntc /HPF (0 - 2) H Urine Squamous Epithelial Cells Moderate /LPF (NONE/OCC) H Urine Bacteria Many /HPF (NONE) H Microbiology Date/Time Source Procedure Growth Status 08/24/20 16:45 Urine,Clean Catch Urine Culture - Preliminary Gram Negative Brodie Resulted Height (Feet): 5 Height (Inches): 3.00 Weight (Pounds): 74 Medications Current Medications Medications (Trade) Dose Ordered Sig/Crystal Route PRN Reason Start Time Stop Time Status Last Admin Dose Admin Acetaminophen (Tylenol) 650 mg Q4H PRN ORAL Mild Pain (Pain Scale 1-3) 08/24/20 17:00 09/23/20 16:59 Bisacodyl (Dulcolax) 10 mg HSPRN PRN RECTAL Constipation 08/24/20 17:00 11/22/20 16:59 Dextrose (Dextrose 50%) 25 ml Q30M PRN IV Hypoglycemia 08/24/20 17:00 11/22/20 16:59 Dextrose (Dextrose 50%) 50 ml Q30M PRN IV Hypoglycemia 08/24/20 17:00 11/22/20 16:59 Dextrose/ Electrolytes 1,000 ml @ 75 mls/hr [id number] IV 08/25/20 16:00 09/24/20 15:59 Diphenhydramine HCl (Benadryl) 25 mg Q6H PRN ORAL Itching/Pruritis 08/24/20 17:00 09/23/20 16:59 Docusate Sodium (Colace) 100 mg EVERY 12 HOURS ORAL 08/24/20 21:00 09/23/20 20:59 08/25/20 08:31 Gabapentin (Neurontin) 300 mg THREE TIMES A DAY ORAL 08/24/20 18:00 09/23/20 17:59 08/25/20 08:32 Hydromorphone HCl (Dilaudid) 2 mg Q4H PRN ORAL For Pain 08/25/20 07:30 09/01/20 07:29 08/25/20 08:33 Lorazepam (Ativan) 0.5 mg Q4H PRN ORAL Anxiety 08/24/20 17:15 08/31/20 17:14 Mirtazapine (Remeron) 7.5 mg BEDTIME ORAL 08/24/20 21:00 11/22/20 20:59 08/24/20 21:17 Ondansetron HCl (Zofran) 4 mg Q6H PRN IVP Nausea & Vomiting 08/24/20 17:00 09/23/20 16:59 Pantoprazole (Protonix) 40 mg DAILY ORAL 08/25/20 09:00 09/24/20 08:59 08/25/20 08:32 Piperacillin Sod/ Tazobactam Sod 3.375 gm/Sodium Chloride 110 ml @ 27.5 mls/hr Q8H IVPB 08/25/20 09:00 09/01/20 08:59 08/25/20 08:33 Polyethylene Glycol/ Electrolytes (Golytely) 4,000 ml ONCE ORAL 08/25/20 14:00 08/25/20 23:59 Temazepam (Restoril) 15 mg HSPRN PRN ORAL Insomnia 08/24/20 17:00 08/31/20 16:59 Thiamine HCl (Vitamin B1) 200 mg DAILY ORAL 08/25/20 09:00 09/24/20 08:59 08/25/20 08:32 Assessment/Plan Diagnosis Salvo I: #Symptomatic acute on chronic anemia #Possibly related to chronic blood loss from left ear wound #Chronic pain #Peripheral neuropathy #Bitemporal wasting, hypoalbuminemia #Severe protein calorie malnutrition -getting 2 units RBC in ED -monitor CBC -PT/OT eval -Fall and aspiration precautions -RD eval -Ensure FLAKITOD Gisela Martinez M.D. Aug 25, 2020 10:11
[2020-08-25 12:00] VITALS: BP 138/100
--- NOTE | 2020-08-25 13:46 | NUR ---
nurse notes patient called stated i want to eat real food, explained patient she is on clear liquid diet , patient stated i dont want chase do the procedure, paged Dr Allen awating for his call cori montemayor
[2020-08-25] MEDS ORDERED: Golytely 4L ORAL SCH (14:00)
--- NOTE | 2020-08-25 14:20 | NUR ---
nurse notes Dr Alejandre ordered regular diet , no order to dc IVF XU LARSON
[2020-08-25] MEDS: D5 1/2NS w/KCl 20mEq 1,000 ML IV SCH (15:48)
[2020-08-25 16:00] VITALS: BP 134/89
[2020-08-25] MEDS ORDERED: cefTRIAXone 1 GM in D5W 55 ML IVPB SCH (18:00)
--- NOTE | 2020-08-25 19:53 | NUR ---
NURSE NOTES: Received patient comfortably sleeping, no SOB noted, kept clean and dry.
[2020-08-25 20:00] VITALS: BP 132/76
--- NOTE | 2020-08-25 20:00 | NUR ---
nurse notes endorsed to Mari MCNAIR for continuity of care cori montemayor
[2020-08-26 00:12] VITALS: BP 140/60
[2020-08-26] MEDS: Zoysn 3.37gm in NS 100ML IVPB SCH ×3 (00:51→17:24)
[2020-08-26] MEDS: D5 1/2NS w/KCl 20mEq 1,000 ML IV SCH ×2 (00:55→17:25)
[2020-08-26] MEDS: HYDROmorphone 2mg tab ORAL PRN ×4 (02:07→23:50)
[2020-08-26 04:00] VITALS: BP 128/78
--- NOTE | 2020-08-26 06:16 | NUR ---
NURSE HAND-OFF: Important Events on Shift:[]Refused GI procedure Patient Status: [] Diet: [] Pending Orders: [] Pending Results/Labs:[] Pending MD notification:[] Latest Vital Signs: Temperature 96.9 , Pulse 90 , B/P 128 /78 , Respiratory Rate 18 , O2 SAT 97 , Room Air, O2 Flow Rate . Vital Sign Comment: [] Latest Junior Fall Score: 45 Fall Risk: High Risk Safety Measures: Call light Within Reach, Bed Alarm Zone 2, Side Rails Side Rails x2, Bed position Low and Locked. Fall Precautions: Yellow Socks Yellow Gown Patient Fall Education Report given to [].
[2020-08-26 07:20] LABS: BASOPHILS % (AUTO) 1.1 % (0.0-2.0); EOSINOPHILS % (AUTO) 7.8 % (0.0-3.0); HEMATOCRIT 33.2 % (37.0-47.0); LYMPHOCYTES % (AUTO) 22.1 % (20.0-45.0); MEAN CORPUSCULAR VOLUME 87 FL (80-99); MONOCYTES % (AUTO) 10.9 % (1.0-10.0); NEUTROPHILS % (AUTO) 58.1 % (45.0-75.0); PLATELET COUNT 380 K/UL (150-450); RED BLOOD COUNT 3.81 M/UL (4.20-5.40); RED CELL DISTRIBUTION WIDTH 16.3 % (11.6-14.8); WHITE BLOOD COUNT 4.9 K/UL (4.8-10.8)
[2020-08-26 07:28] LABS: ALANINE AMINOTRANSFERASE 19 U/L (12-78); ALBUMIN 1.5 G/DL (3.4-5.0); ALBUMIN/GLOBULIN RATIO 0.2 (1.0-2.7); ALKALINE PHOSPHATASE 95 U/L (46-116); ASPARTATE AMINO TRANSFERASE 16 U/L (15-37); BILIRUBIN,TOTAL 0.2 MG/DL (0.2-1.0); BLOOD UREA NITROGEN 13 mg/dL (7-18); CALCIUM 8.3 MG/DL (8.5-10.1); CARBON DIOXIDE 22 MMOL/L (21-32); CHLORIDE 104 MMOL/L (98-107); CREATININE 0.8 MG/DL (0.55-1.30); POTASSIUM 3.5 MMOL/L (3.5-5.1); SODIUM 136 MMOL/L (136-145)
[2020-08-26 07:29] LABS: AMYLASE 62 U/L (25-115); ANION GAP 10 mmol/L (5-15)
[2020-08-26 09:00] VITALS: BP 120/75
--- NOTE | 2020-08-26 09:31 | Diagnostic Imaging Report ---
Indication: Reason For Exam: ABD PAIN Technique: XRAY Abdomen 1v Comparison: None. Findings: The bowel gas pattern is nonobstructive. No abnormal calcifications are identified. There is no evidence of gross free fluid or gross free air. Osseous structures are unremarkable. Impression: Negative abdomen.
--- NOTE | 2020-08-26 09:44 | General Progress Note ---
Subjective ROS Limited/Unobtainable: No Allergies: Coded Allergies: MORPHINE (Verified Allergy, Unknown, 08/24/20) SULFAMETHOXAZOLE (Verified Allergy, Unknown, 08/24/20) TRIMETHOPRIM (Verified Allergy, Unknown, 08/24/20) Objective Last 24 Hour Vital Signs Date Time Temp Pulse Resp B/P (MAP) Pulse Ox O2 Delivery O2 Flow Rate FiO2 08/26/20 04:00 96.9 90 18 128/78 (95) 97 08/26/20 02:37 97.6 08/26/20 00:12 97.6 84 18 140/60 (86) 99 08/25/20 21:00 Room Air 08/25/20 20:00 97.8 98 18 132/76 (94) 99 08/25/20 16:00 98.1 78 19 134/89 (104) 98 08/25/20 12:00 97.9 80 19 138/100 (113) 94 Intake and Output 08/25/20 08/26/20 19:00 07:00 Intake Total 787.5 ml 997.5 ml Balance 787.5 ml 997.5 ml Intake Oral 280 ml IV Total 287.5 ml 717.5 ml Other 500 ml # Voids 3 Laboratory Tests 08/26/20 05:03: White Blood Count 4.9, Red Blood Count 3.81L, Hemoglobin 11.0L, Hematocrit 33.2L , Mean Corpuscular Volume 87, Mean Corpuscular Hemoglobin 28.7, Mean Corpuscular Hemoglobin Concent 33.0, Red Cell Distribution Width 16.3H, Platelet Count 380, Mean Platelet Volume 4.6L, Neutrophils (%) (Auto) 58.1, Lymphocytes (%) (Auto) 22.1, Monocytes (%) (Auto) 10.9H, Eosinophils (%) (Auto) 7.8H, Basophils (%) (Auto) 1.1, Sodium Level 136, Potassium Level 3.5, Chloride Level 104, Carbon Dioxide Level 22, Anion Gap 10, Blood Urea Nitrogen 13, Creatinine 0.8, Estimat Glomerular Filtration Rate > 60, Glucose Level 77, Calcium Level 8.3L, Total Bilirubin 0.2, Aspartate Amino Transf (AST/SGOT) 16, Alanine Aminotransferase (ALT/SGPT) 19, Alkaline Phosphatase 95, Total Protein 7.5, Albumin 1.5L, Globulin 6.0, Albumin/Globulin Ratio 0.2L, Amylase Level 62, Lipase 130, Carcinoembryonic Antigen [Pending] Height (Feet): 5 Height (Inches): 3.00 Weight (Pounds): 74 General Appearance: no apparent distress EENT: PERRL/EOMI Neck: supple Cardiovascular: normal rate Respiratory/Chest: decreased breath sounds Abdomen: normal bowel sounds, non tender, soft Extremities: non-tender Assessment/Plan Problem List: (1) GERD (gastroesophageal reflux disease) ICD Codes: K21.9 - Gastro-esophageal reflux disease without esophagitis SNOMED: 061575893 (2) Cachexia ICD Codes: R64 - Cachexia SNOMED: 795692517 (3) Neuropathy ICD Codes: G62.9 - Polyneuropathy, unspecified SNOMED: 052394803 (4) Acute anemia ICD Codes: D64.9 - Anemia, unspecified SNOMED: 8890671, 739870531 (5) UTI (urinary tract infection) ICD Codes: N39.0 - Urinary tract infection, site not specified SNOMED: 89838758 Assessment/Plan: cea plan EGd and colonoscopy>>>patient refusing stool ob s/p blood transfusion abx for UTI plan CT James Alejandre MD Aug 26, 2020 09:44
--- NOTE | 2020-08-26 09:55 | Nephrology Progress Note ---
Assessment/Plan Plan #Symptomatic acute on chronic anemia #Possibly related to chronic blood loss from left ear wound #Chronic pain #Peripheral neuropathy #Bitemporal wasting, hypoalbuminemia #Severe protein calorie malnutrition -getting 2 units RBC in ED -monitor CBC -PT/OT eval -Fall and aspiration precautions -RD eval -Ensure TID Subjective ROS Limited/Unobtainable: No Subjective complains of generalized pain hemoglobin stable Objective Objective Last 24 Hour Vital Signs Date Time Temp Pulse Resp B/P (MAP) Pulse Ox O2 Delivery O2 Flow Rate FiO2 08/26/20 04:00 96.9 90 18 128/78 (95) 97 08/26/20 02:37 97.6 08/26/20 00:12 97.6 84 18 140/60 (86) 99 08/25/20 21:00 Room Air 08/25/20 20:00 97.8 98 18 132/76 (94) 99 08/25/20 16:00 98.1 78 19 134/89 (104) 98 08/25/20 12:00 97.9 80 19 138/100 (113) 94 Intake and Output 08/25/20 08/26/20 19:00 07:00 Intake Total 787.5 ml 997.5 ml Balance 787.5 ml 997.5 ml Intake Oral 280 ml IV Total 287.5 ml 717.5 ml Other 500 ml # Voids 3 Laboratory Tests 08/26/20 05:03: White Blood Count 4.9, Red Blood Count 3.81L, Hemoglobin 11.0L, Hematocrit 33.2L , Mean Corpuscular Volume 87, Mean Corpuscular Hemoglobin 28.7, Mean Corpuscular Hemoglobin Concent 33.0, Red Cell Distribution Width 16.3H, Platelet Count 380, Mean Platelet Volume 4.6L, Neutrophils (%) (Auto) 58.1, Lymphocytes (%) (Auto) 22.1, Monocytes (%) (Auto) 10.9H, Eosinophils (%) (Auto) 7.8H, Basophils (%) (Auto) 1.1, Sodium Level 136, Potassium Level 3.5, Chloride Level 104, Carbon Dioxide Level 22, Anion Gap 10, Blood Urea Nitrogen 13, Creatinine 0.8, Estimat Glomerular Filtration Rate > 60, Glucose Level 77, Calcium Level 8.3L, Total Bilirubin 0.2, Aspartate Amino Transf (AST/SGOT) 16, Alanine Aminotransferase (ALT/SGPT) 19, Alkaline Phosphatase 95, Total Protein 7.5, Albumin 1.5L, Globulin 6.0, Albumin/Globulin Ratio 0.2L, Amylase Level 62, Lipase 130, Carcinoembryonic Antigen [Pending] Height (Feet): 5 Height (Inches): 3.00 Weight (Pounds): 74 Gisela Martinez M.D. Aug 26, 2020 09:55
[2020-08-26] MEDS: Thiamine 100mg tab ORAL SCH (10:27)
[2020-08-26] MEDS: Docusate 100mg cap ORAL SCH ×2 (10:27→19:50)
--- NOTE | 2020-08-26 11:56 | General Progress Note ---
Subjective Date patient seen: Aug 26, 2020 Time patient seen: 11:53 Constitutional: Denies: chills, fever Cardiovascular: Denies: chest pain Respiratory: Denies: cough Gastrointestinal/Abdominal: Denies: abdominal pain, black stools, tarry stools Genitourinary: Denies: burning, discharge, frequency Allergies: Coded Allergies: MORPHINE (Verified Allergy, Unknown, 08/24/20) SULFAMETHOXAZOLE (Verified Allergy, Unknown, 08/24/20) TRIMETHOPRIM (Verified Allergy, Unknown, 08/24/20) Subjective No acute events overnight Asking for IV Dilaudid Got 2 units RBC with improvement in H&H Objective Last 24 Hour Vital Signs Date Time Temp Pulse Resp B/P (MAP) Pulse Ox O2 Delivery O2 Flow Rate FiO2 08/26/20 11:00 96.9 08/26/20 09:00 98.2 85 18 120/75 (90) 94 08/26/20 09:00 Room Air 08/26/20 04:00 96.9 90 18 128/78 (95) 97 08/26/20 02:37 97.6 08/26/20 00:12 97.6 84 18 140/60 (86) 99 08/25/20 21:00 Room Air 08/25/20 20:00 97.8 98 18 132/76 (94) 99 08/25/20 16:00 98.1 78 19 134/89 (104) 98 08/25/20 12:00 97.9 80 19 138/100 (113) 94 Intake and Output 08/25/20 08/26/20 19:00 07:00 Intake Total 787.5 ml 997.5 ml Balance 787.5 ml 997.5 ml Intake Oral 280 ml IV Total 287.5 ml 717.5 ml Other 500 ml # Voids 3 Laboratory Tests 08/26/20 05:03: White Blood Count 4.9, Red Blood Count 3.81L, Hemoglobin 11.0L, Hematocrit 33.2L , Mean Corpuscular Volume 87, Mean Corpuscular Hemoglobin 28.7, Mean Corpuscular Hemoglobin Concent 33.0, Red Cell Distribution Width 16.3H, Platelet Count 380, Mean Platelet Volume 4.6L, Neutrophils (%) (Auto) 58.1, Lymphocytes (%) (Auto) 22.1, Monocytes (%) (Auto) 10.9H, Eosinophils (%) (Auto) 7.8H, Basophils (%) (Auto) 1.1, Sodium Level 136, Potassium Level 3.5, Chloride Level 104, Carbon Dioxide Level 22, Anion Gap 10, Blood Urea Nitrogen 13, Creatinine 0.8, Estimat Glomerular Filtration Rate > 60, Glucose Level 77, Calcium Level 8.3L, Total Bilirubin 0.2, Aspartate Amino Transf (AST/SGOT) 16, Alanine Aminotransferase (ALT/SGPT) 19, Alkaline Phosphatase 95, Total Protein 7.5, Albumin 1.5L, Globulin 6.0, Albumin/Globulin Ratio 0.2L, Amylase Level 62, Lipase 130, Carcinoembryonic Antigen [Pending] Height (Feet): 5 Height (Inches): 3.00 Weight (Pounds): 74 General Appearance: no apparent distress, alert Neck: normal alignment, supple Cardiovascular: normal rate, regular rhythm Respiratory/Chest: lungs clear, normal breath sounds Assessment/Plan Assessment/Plan: 60-year-old female presents from nursing facility for evaluation of acute (symptomatic) on chronic anemia #Symptomatic acute on chronic anemia, improved #Possibly related to chronic blood loss from left ear wound -continue inpatient care -s/p 2 units RBC -monitor CBC -PT/OT eval -Fall and aspiration precautions -GI wanted to EGD/colonoscopy but patient refused #Abnormal UA #Gram neg UTI -given ceftriaxone in ED -cont Zosyn -Follow up final urine culture #Chronic pain #Peripheral neuropathy -cont outpatient pain regimen -Morphine changed to Dilaudid #Bitemporal wasting, hypoalbuminemia #Severe protein calorie malnutrition -RD eval -Patient refusing endoscopic evaluation -Ensure TID I [id number] on this patient's case, and 20minutes was dedicated to counseling and/or care coordination. D/w RN, consultants Flaquito Villanueva MD Aug 26, 2020 11:56
[2020-08-26 12:00] VITALS: BP 130/71
[2020-08-26] MEDS ORDERED: HYDROmorphone 1mg/ml Carpuject IVP SCH (12:00)
--- NOTE | 2020-08-26 13:11 | Surgery Progress Note ---
Surgery Progress Note Subjective Symptoms: improved, pain same, tolerating diet, passing flatus, BM Objective Last 24 Hour Vital Signs Date Time Temp Pulse Resp B/P (MAP) Pulse Ox O2 Delivery O2 Flow Rate FiO2 08/26/20 12:00 98.0 84 18 130/71 (90) 99 08/26/20 11:00 96.9 08/26/20 09:00 98.2 85 18 120/75 (90) 94 08/26/20 09:00 Room Air 08/26/20 04:00 96.9 90 18 128/78 (95) 97 08/26/20 02:37 97.6 08/26/20 00:12 97.6 84 18 140/60 (86) 99 08/25/20 21:00 Room Air 08/25/20 20:00 97.8 98 18 132/76 (94) 99 08/25/20 16:00 98.1 78 19 134/89 (104) 98 I&O Intake and Output 08/25/20 08/26/20 19:00 07:00 Intake Total 787.5 ml 997.5 ml Balance 787.5 ml 997.5 ml Intake Oral 280 ml IV Total 287.5 ml 717.5 ml Other 500 ml # Voids 3 Cardiovascular: RSR Respiratory: clear Abdomen: soft, flat, non-tender, present bowel sounds, non-distended Extremities: no edema, no tenderness, no cyanosis Laboratory Tests Test 08/26/20 05:03 White Blood Count 4.9 K/UL (4.8-10.8) Red Blood Count 3.81 M/UL (4.20-5.40) L Hemoglobin 11.0 G/DL (12.0-16.0) L Hematocrit 33.2 % (37.0-47.0) L Mean Corpuscular Volume 87 FL (80-99) Mean Corpuscular Hemoglobin 28.7 PG (27.0-31.0) Mean Corpuscular Hemoglobin Concent 33.0 G/DL (32.0-36.0) Red Cell Distribution Width 16.3 % (11.6-14.8) H Platelet Count 380 K/UL (150-450) Mean Platelet Volume 4.6 FL (6.5-10.1) L Neutrophils (%) (Auto) 58.1 % (45.0-75.0) Lymphocytes (%) (Auto) 22.1 % (20.0-45.0) Monocytes (%) (Auto) 10.9 % (1.0-10.0) H Eosinophils (%) (Auto) 7.8 % (0.0-3.0) H Basophils (%) (Auto) 1.1 % (0.0-2.0) Sodium Level 136 MMOL/L (136-145) Potassium Level 3.5 MMOL/L (3.5-5.1) Chloride Level 104 MMOL/L (98-107) Carbon Dioxide Level 22 MMOL/L (21-32) Anion Gap 10 mmol/L (5-15) Blood Urea Nitrogen 13 mg/dL (7-18) Creatinine 0.8 MG/DL (0.55-1.30) Estimat Glomerular Filtration Rate > 60 mL/min (>60) Glucose Level 77 MG/DL (74-106) Calcium Level 8.3 MG/DL (8.5-10.1) L Total Bilirubin 0.2 MG/DL (0.2-1.0) Aspartate Amino Transf (AST/SGOT) 16 U/L (15-37) Alanine Aminotransferase (ALT/SGPT) 19 U/L (12-78) Alkaline Phosphatase 95 U/L (46-116) Total Protein 7.5 G/DL (6.4-8.2) Albumin 1.5 G/DL (3.4-5.0) L Globulin 6.0 g/dL Albumin/Globulin Ratio 0.2 (1.0-2.7) L Amylase Level 62 U/L (25-115) Lipase 130 U/L (73-393) Carcinoembryonic Antigen Pending Plan Problems: (1) Abdominal pain Assessment & Plan: 60F with anemia c/o pain all over including 810 abd pain requesting more pain medication IV instead of oral po meds. no n/v/f/c. hungry tolerating diet. passing flatus. transfused prbc and h/h improved. stool studies pending. GI eval noted. abd exam benign. no acute abdomen. soft nt/nd bs+. has bowel function. no acute surgical intervention planned. okay for diet. AM kub. trend labs. will follow with exam and recs. thank you (2) UTI (urinary tract infection) (3) Cachexia (4) Neuropathy (5) GERD (gastroesophageal reflux disease) (6) Acute anemia Ramos Nathan Aug 26, 2020 13:11
--- NOTE | 2020-08-26 14:25 | NUR ---
P.T Note: P.T evaluation completed and tx initiated. Pt is alert O x 3. Pt denied c/o pain and presented generalized weakness and quick onset of fatigue. Pt will benefit from skilled P.T services during hospital stay to address strength, endurance, balance and transfers gait deficits for return to PLOF. recommend DC to prior living arrangement when pt is stable. Pt is cleared for OOB activities with nursing assistance. Addendum: 08/26/20 at 1427 by MISAEL UMANZOR PT Amended: Links added.
[2020-08-26] MEDS ORDERED: HYDROXYZINE HCL10 M1 PO (14:55)
[2020-08-26] MEDS ORDERED: ONDANSETRON ODT4 MG BC (14:55)
[2020-08-26 16:31] VITALS: BP 128/74
--- NOTE | 2020-08-26 17:18 | NUR ---
CASE MANAGEMENT: INITIAL REVIEW 08/24/2020 60 YO F [facility]HIA FROM [facility] CC: ABNORMAL LABS HGB 7.1 PMHx: GERD, hypertension, anemia, peripheral neuropathy SI:ANEMIA VS: T 98.1 HR 71 RR 16 B/P 102/64 SATS 99% ON RA LABS: HGB 7.6 HCT 23.8 CL 113 BUN 25 GLU 113 CA 8 IS: DILAUDID IV X1 CEFTRIAXONE IV Q24H PATIENT ADMITTED TO MED/SURG 08/24/2020 @ 1651 DCP: SNF PLAN OF CARE: 2 units of RBC -PT/OT eval -Fall and aspiration precautions CONCURRENT REVIEW FOR 08/25/2020 SI:ANEMIA VS: T 98.6 HR 81 RR 18 B/P 143/83 SATS 100% ON RA LABS: CL 112 BUN 20 GLU 73 CA 8.3 IS:D5NS @ 75 ML/HR ZOSYN IV Q8H GABAPENTIN PO TID MED/SURG CONCURRENT REVIEW FOR 08/26/2020 SI:ANEMIA VS: T 98.1 HR 81 RR 18 B/P 128/74 SATS 97% ON RA LABS: CA 8.3 IS:D5NS @ 75 ML/HR ZOSYN IV Q8H GABAPENTIN PO TID MED/SURG
--- NOTE | 2020-08-26 19:32 | NUR ---
NURSE NOTES: Received patient awake, alert, verbal, eating her dinner, no SOB noted.
[2020-08-26 20:31] VITALS: BP 108/62
[2020-08-27 00:13] VITALS: BP 114/69
[2020-08-27] MEDS: Zoysn 3.37gm in NS 100ML IVPB SCH ×2 (00:26→08:39)
[2020-08-27 04:15] VITALS: BP 156/89
[2020-08-27] MEDS: HYDROmorphone 2mg tab ORAL PRN ×4 (06:36→22:41)
--- NOTE | 2020-08-27 06:40 | NUR ---
NURSE HAND-OFF: Important Events on Shift:[] Patient Status: [] Diet: []NPO Pending Orders: []CT abdomen with or without contrast Pending Results/Labs:[] Pending MD notification:[] Latest Vital Signs: Temperature 97.6 , Pulse 66 , B/P 156 /89 , Respiratory Rate 20 , O2 SAT 100 , Room Air, O2 Flow Rate . Vital Sign Comment: [] Latest Junior Fall Score: 45 Fall Risk: High Risk Safety Measures: Call light Within Reach, Bed Alarm Zone 2, Side Rails Side Rails x2, Bed position Low and Locked. Fall Precautions: Yellow Socks Yellow Gown Patient Fall Education Report given to [].
--- NOTE | 2020-08-27 07:27 | NUR ---
NURSE NOTES: Report received from Mari MCNAIR. Patent seen on rounds, AxOx4,n not in distress or pain. NPO since midnight for CT procedure, education reinforced and pt verbalized understanding. PIV on left forearm patent and infusing D51/2 NS +20KCL@ 75cc/hr. Pt had a bowel movement, will collect pending stool with OB. Bed low and locked, siderails up x 2, call light placed within reach and instructed to call nurse for assistance. Will continue to monitor.
[2020-08-27 08:00] VITALS: BP 125/71
[2020-08-27] MEDS: Thiamine 100mg tab ORAL SCH (08:34)
[2020-08-27] MEDS: Docusate 100mg cap ORAL SCH ×2 (08:34→21:19)
[2020-08-27] MEDS: D5 1/2NS w/KCl 20mEq 1,000 ML IV SCH ×2 (08:38→21:20)
--- NOTE | 2020-08-27 08:43 | Nephrology Progress Note ---
Assessment/Plan Plan #Symptomatic acute on chronic anemia #Possibly related to chronic blood loss from left ear wound #Chronic pain #Peripheral neuropathy #Bitemporal wasting, hypoalbuminemia #Severe protein calorie malnutrition -getting 2 units RBC in ED Refusing EGD/Colon CT A/P pending for tomorrow as patient did not wish to remain NPO today -monitor CBC -PT/OT eval -Fall and aspiration precautions -RD eval -Ensure TID Subjective ROS Limited/Unobtainable: No Constitutional: Reports: weakness HEENT: Denies: no symptoms, eye pain, blurred vision, tearing, double vision, ear pain, ear discharge, nose pain, nose congestion, throat pain, throat swe lling, mouth pain, mouth swelling, other Genitourinary: Denies: no symptoms, burning, discharge, frequency, flank pain, hematuria, incontinence, pain, urgency, other Neurologic/Psychiatric: Denies: no symptoms, anxiety, depressed, emotional problems, headache, numbness, paresthesia, pre-existing deficit, seizure, tingling, tremors, weakness, other Subjective No acute events overnight Refusing EGD/Colon CT A/P pending Objective Objective Last 24 Hour Vital Signs Date Time Temp Pulse Resp B/P (MAP) Pulse Ox O2 Delivery O2 Flow Rate FiO2 08/27/20 07:06 97.6 08/27/20 04:15 97.6 66 20 156/89 (111) 100 08/27/20 00:25 98.0 08/27/20 00:13 98.0 70 18 114/69 (84) 98 08/26/20 20:31 97.9 72 20 108/62 (77) 98 08/26/20 20:22 98.1 08/26/20 20:06 Room Air 08/26/20 16:31 98.1 81 18 128/74 (92) 97 08/26/20 12:00 98.0 84 18 130/71 (90) 99 08/26/20 11:00 96.9 08/26/20 09:00 98.2 85 18 120/75 (90) 94 08/26/20 09:00 Room Air Intake and Output 08/26/20 08/27/20 19:00 07:00 Intake Total 980 ml 935.0 ml Balance 980 ml 935.0 ml Intake Oral 480 ml 340 ml IV Total 595.0 ml Other 500 ml # Voids 2 3 # Bowel Movements 1 Height (Feet): 5 Height (Inches): 3.00 Weight (Pounds): 74 Objective General Appearance: no apparent distress, alert Lines, tubes and drains: peripheral HEENT: normocephalic, atraumatic Neck: non-tender, normal alignment Respiratory/Chest: chest wall non-tender, lungs clear Cardiovascular/Chest: normal peripheral pulses, normal rate Abdomen: normal bowel sounds, non tender Extremities: normal range of motion, non-tender Skin Exam: normal pigmentation Neurologic: alert, oriented x 3 Gisela Martinez M.D. Aug 27, 2020 08:43
--- NOTE | 2020-08-27 10:49 | NUR ---
NURSE NOTES:WOUND CARE NOTES:Pt is cachetic and presented with multiple pressure injuries. Generalized hypopigmented spots noted to trunk back and bilat lower extremities. Pt noted to have an abrasion below L ear(L)1.2cm x (W)5.4cm. Pt stated she sustained wound from recent fall in community. Base of wound is moist and viable with dry scabbed borders. Mild erythema without induration or elevation in skin temp periwound. No exudate noted. DTPI L trochanteric(L)1.9cm x (W)5.3cm. Base of Pressure Injury is partially opened. indurated and purpuric with surrounding maroon borders.Small wound with 90% slough,10% erythema over protruding bony prominence of trochanter within DTPI(L)0.3cm x (W)1.2cm DTPI R Hip (L)3.5cm x (W)3.9cm. Base of wound is indurated,maroon partially opened in center. Mild elevation in skin temp. Wound within in base of Pressure Injury is 100% slough(L)1.2cm x (W)0.5cm. No odor or exudate noted. R Heel is boggy with non-blanchable erythema. L Heel is boggy with non-blanchable erythema. Tx.Plan: Cleanse wound below L Ear with Saline. Cover with Optifoam drsg. Change Daily and prn. Cleanse wound L trochanter with Saline. Apply Therahoney to Slough. Apply Cavilon periwound. Cover with Optifoam drsg. Change every 3 days and prn. Cleanse R Hip wound with Saline. Apply TheraHoney. Apply Cavilon periwound. Cover with Optifoam drsg.Change every 3 days and prn. Reposition at least every 2hours or as tolerated. Off-load heels with Pillow. APM/DANUTA Mattress overlay.
[2020-08-27 12:00] VITALS: BP 133/64
--- NOTE | 2020-08-27 12:00 | Surgery Progress Note ---
Surgery Progress Note Subjective Additional Comments headache resolved no n/v feels better Objective Last 24 Hour Vital Signs Date Time Temp Pulse Resp B/P (MAP) Pulse Ox O2 Delivery O2 Flow Rate FiO2 08/27/20 09:00 Room Air 08/27/20 07:06 97.6 08/27/20 04:15 97.6 66 20 156/89 (111) 100 08/27/20 00:25 98.0 08/27/20 00:13 98.0 70 18 114/69 (84) 98 08/26/20 20:31 97.9 72 20 108/62 (77) 98 08/26/20 20:22 98.1 08/26/20 20:06 Room Air 08/26/20 16:31 98.1 81 18 128/74 (92) 97 I&O Intake and Output 08/26/20 08/27/20 19:00 07:00 Intake Total 980 ml 935.0 ml Balance 980 ml 935.0 ml Intake Oral 480 ml 340 ml IV Total 595.0 ml Other 500 ml # Voids 2 3 # Bowel Movements 1 Cardiovascular: RSR Respiratory: clear Abdomen: soft, flat, non-tender, present bowel sounds, non-distended Extremities: no edema, no tenderness, no cyanosis Plan Problems: (1) Abdominal pain Assessment & Plan: 60F with anemia c/o pain all over including 8/10 abd pain requesting more pain medication IV instead of oral po meds. no n/v/f/c. hungry tolerating diet. passing flatus. transfused prbc and h/h improved. stool studies pending. GI eval noted. abd exam benign. no acute abdomen. soft nt/nd bs+. has bowel function. no acute surgical intervention planned. okay for diet. AM kub. trend labs. will follow with exam and recs. thank you (2) UTI (urinary tract infection) (3) Cachexia (4) Neuropathy (5) GERD (gastroesophageal reflux disease) (6) Acute anemia Ramos Nathan Aug 27, 2020 12:00
--- NOTE | 2020-08-27 12:04 | NUR ---
RD ASSESSMENT & RECOMMENDATIONS SEE CARE ACTIVITY FOR COMPLETE ASSESSMENT DAILY ESTIMATED NEEDS: Needs based on Underweight 34kg 30-35 kcals/kg 6281-9610 total kcals 1-1.5 g protein/kg 34-51 g total protein 25-35ml/kcal mL/kg 850-1190 total fluid mLs NUTRITION DIAGNOSIS: Increased kcal needs r/t underweight status as evidenced by BMI underweight per guidelines, pt is 65% of [place] Body Weight. CURRENT DIET:regular PO DIET RECOMMENDATIONS: Advance diet as medically able to regular / soft diet ADDITIONAL RECOMMENDATIONS: 1) Obtain a standing weight as able or recalibrated bed scale wt 2) BG borderline low (73, 77), maintain D5 while NPO rec bedside BG checks 3) With CLD add Ensure Clear TID (8g pro, 240 kcal/each) With advanced diet->add Ensure Enlive TID w/ meals
--- NOTE | 2020-08-27 13:00 | General Progress Note ---
Subjective ROS Limited/Unobtainable: No Allergies: Coded Allergies: MORPHINE (Verified Allergy, Unknown, 08/24/20) SULFAMETHOXAZOLE (Verified Allergy, Unknown, 08/24/20) TRIMETHOPRIM (Verified Allergy, Unknown, 08/24/20) Objective Last 24 Hour Vital Signs Date Time Temp Pulse Resp B/P (MAP) Pulse Ox O2 Delivery O2 Flow Rate FiO2 08/27/20 12:00 98.0 82 20 133/64 (87) 100 08/27/20 09:00 Room Air 08/27/20 08:00 97.4 71 20 125/71 (89) 100 08/27/20 07:06 97.6 08/27/20 04:15 97.6 66 20 156/89 (111) 100 08/27/20 00:25 98.0 08/27/20 00:13 98.0 70 18 114/69 (84) 98 08/26/20 20:31 97.9 72 20 108/62 (77) 98 08/26/20 20:22 98.1 08/26/20 20:06 Room Air 08/26/20 16:31 98.1 81 18 128/74 (92) 97 Intake and Output 08/26/20 08/27/20 19:00 07:00 Intake Total 980 ml 935.0 ml Balance 980 ml 935.0 ml Intake Oral 480 ml 340 ml IV Total 595.0 ml Other 500 ml # Voids 2 3 # Bowel Movements 1 Height (Feet): 5 Height (Inches): 3.00 Weight (Pounds): 74 General Appearance: no apparent distress EENT: normal ENT inspection Neck: supple Cardiovascular: normal rate Respiratory/Chest: decreased breath sounds Abdomen: normal bowel sounds, non tender, soft Extremities: non-tender Assessment/Plan Problem List: (1) GERD (gastroesophageal reflux disease) ICD Codes: K21.9 - Gastro-esophageal reflux disease without esophagitis SNOMED: 424543302 (2) Cachexia ICD Codes: R64 - Cachexia SNOMED: 925108692 (3) Neuropathy ICD Codes: G62.9 - Polyneuropathy, unspecified SNOMED: 572212660 (4) Acute anemia ICD Codes: D64.9 - Anemia, unspecified SNOMED: 0427888, 047499843 (5) UTI (urinary tract infection) ICD Codes: N39.0 - Urinary tract infection, site not specified SNOMED: 75071631 Assessment/Plan: cea plan EGd and colonoscopy>>>patient refusing stool ob s/p blood transfusion abx for UTI pending CT James Alejandre MD Aug 27, 2020 13:00
--- NOTE | 2020-08-27 14:59 | General Progress Note ---
Subjective Date patient seen: Aug 27, 2020 Time patient seen: 14:57 Constitutional: Denies: chills, fever Cardiovascular: Denies: chest pain Respiratory: Denies: cough Gastrointestinal/Abdominal: Denies: abdominal pain Genitourinary: Denies: discharge Allergies: Coded Allergies: MORPHINE (Verified Allergy, Unknown, 08/24/20) SULFAMETHOXAZOLE (Verified Allergy, Unknown, 08/24/20) TRIMETHOPRIM (Verified Allergy, Unknown, 08/24/20) Subjective No acute events overnight Refusing EGD/Colon CT A/P pending for tomorrow as patient did not wish to remain NPO today Objective Last 24 Hour Vital Signs Date Time Temp Pulse Resp B/P (MAP) Pulse Ox O2 Delivery O2 Flow Rate FiO2 08/27/20 12:00 98.0 82 20 133/64 (87) 100 08/27/20 09:00 Room Air 08/27/20 08:00 97.4 71 20 125/71 (89) 100 08/27/20 07:06 97.6 08/27/20 04:15 97.6 66 20 156/89 (111) 100 08/27/20 00:25 98.0 08/27/20 00:13 98.0 70 18 114/69 (84) 98 08/26/20 20:31 97.9 72 20 108/62 (77) 98 08/26/20 20:22 98.1 08/26/20 20:06 Room Air 08/26/20 16:31 98.1 81 18 128/74 (92) 97 Intake and Output 08/26/20 08/27/20 19:00 07:00 Intake Total 980 ml 935.0 ml Balance 980 ml 935.0 ml Intake Oral 480 ml 340 ml IV Total 595.0 ml Other 500 ml # Voids 2 3 # Bowel Movements 1 Laboratory Tests 08/27/20 12:20: Stool Occult Blood [Pending] Height (Feet): 5 Height (Inches): 3.00 Weight (Pounds): 74 General Appearance: no apparent distress, alert Neck: normal alignment, supple Cardiovascular: normal rate, regular rhythm Assessment/Plan Assessment/Plan: 60-year-old female presents from nursing facility for evaluation of acute (symptomatic) on chronic anemia #Symptomatic acute on chronic anemia, improved -continue inpatient care -s/p 2 units RBC -monitor CBC -PT/OT eval -Fall and aspiration precautions -Patient refusing EGD/colon -Ct A/P pending #Citrobacter UTI -given ceftriaxone in ED -Change Zosyn to ceftriaxone based on cultures -Follow up final urine culture #Chronic pain #Peripheral neuropathy -cont outpatient pain regimen -Morphine changed to Dilaudid #Bitemporal wasting, hypoalbuminemia #Severe protein calorie malnutrition -RD eval -Patient refusing endoscopic evaluation -Ensure TID I [id number] on this patient's case, and 20minutes was dedicated to counseling and/or care coordination. D/w RN, consultants Flaquito Villanueva MD Aug 27, 2020 14:59
--- NOTE | 2020-08-27 15:42 | NUR ---
INSURANCE CLINICALS FAXED TO [facility] PH#[phone] FX [phone]
[2020-08-27 16:00] VITALS: BP 135/70
[2020-08-27] MEDS: cefTRIAXone 1 GM in D5W 55 ML IVPB SCH (17:12)
--- NOTE | 2020-08-27 19:38 | NUR ---
NURSE HAND-OFF: Important Events on Shift: CT of the abdomen rescheduled for tomorrow, NPO post midnight, stool OB collected, wound consult done Patient Status: Stable Diet: Regular, then NPO post midnight Pending Orders: N Pending Results/Labs: N Pending MD notification: N Latest Vital Signs: Temperature 98.2 , Pulse 65 , B/P 135 /70 , Respiratory Rate 20 , O2 SAT 100 , Room Air, O2 Flow Rate . Vital Sign Comment: Latest Junior Fall Score: 45 Fall Risk: High Risk Safety Measures: Call light Within Reach, Bed Alarm Zone 2, Side Rails Side Rails x2, Bed position Low and Locked. Fall Precautions: Yellow Socks Yellow Gown Patient Fall Education Report given to Stefanie Tolliver LVN.
[2020-08-27 20:00] VITALS: BP 130/71
--- NOTE | 2020-08-27 20:00 | NUR ---
NURSE NOTES: RECEIVED PATIENT LYING IN BED,AWAKE, ALERT/ORIENTED X3, FORGETFUL, ABLE TO VERBALIZE NEEDS, NO SIGNS AND SYMPTOMS OF ACUTE CARDIO RESPIRATORY DISTRESS/SHORTNESS OF BREATH, DENIES CHEST PAIN, NO PERIPHERAL EDEMA NOTED. VITALS MONITORED, AFEBRILE. ABDOMEN FLAT/SOFT/NON TENDER/AUDIBLE BOWEL SOUNDS, NO REPORT OF N/V/D. PATIENT REFUSED ASSISTANCE WITH COMFORT, STATED "I'M COMFORTABLE". SIDE RAILS UP X3/BED IN LOWEST POSITION FOR SAFETY, ENCOURAGED PATIENT TO UTILIZE CALL LIGHT FOR ASSISTANCE, VERBALIZED UNDERSTANDING. CONTINUE WITH CURRENT PLAN OF CARE. NPO AFTER MIDNIGHT PENDING CT ABDOMEN WITH/WITHOUT CONTRAST, PATIENT AWARE. NAD.
[2020-08-28] VITALS: BP 146/80
[2020-08-28 04:00] VITALS: BP 141/75
[2020-08-28] MEDS: HYDROmorphone 2mg tab ORAL PRN ×3 (06:19→20:31)
[2020-08-28 06:40] LABS: HEMATOCRIT 36.2 % (37.0-47.0); HEMOGLOBIN 11.4 G/DL (12.0-16.0); MEAN CORPUSCULAR VOLUME 90 FL (80-99); PLATELET COUNT 432 K/UL (150-450); RED BLOOD COUNT 4.02 M/UL (4.20-5.40); RED CELL DISTRIBUTION WIDTH 17.5 % (11.6-14.8); WHITE BLOOD COUNT 3.1 K/UL (4.8-10.8)
--- NOTE | 2020-08-28 07:00 | NUR ---
NURSE HAND-OFF REPORT: Important Events on Shift:[RESTED WELL, NO SIGNIFICANT CHANGE OF CONDITION NOTED THROUGHOUT THE NIGHT.-] Patient Status: [STABLE] Diet: [CURRENTLY NPO, PREVIOUS DIET/REGULAR] Pending Orders: [CT ABDOMEN W/WO CONTRAST] Pending Results/Labs:[AM LABS] Pending MD notification:[] Latest Vital Signs: Temperature 97.9 , Pulse 89 , B/P 141 /75 , Respiratory Rate 18 , O2 SAT 99 , Room Air, O2 Flow Rate . Vital Sign Comment: [STABLE,AFEBRILE] EKG Rhythm: Rhythm change?: MD Notified?: - MD Response: Latest Junior Fall Score: 45 Fall Risk: High Risk Safety Measures: Call light Within Reach, Bed Alarm Zone 2, Side Rails Side Rails x2, Bed position Low and Locked. Fall Precautions: Yellow Socks Yellow Gown Patient Fall Education Report given to [XU VÁZQUEZ].
[2020-08-28 07:01] LABS: ANION GAP 7 mmol/L (5-15); BLOOD UREA NITROGEN 17 mg/dL (7-18); CALCIUM 8.8 MG/DL (8.5-10.1); CARBON DIOXIDE 26 MMOL/L (21-32); CHLORIDE 109 MMOL/L (98-107); CREATININE 0.7 MG/DL (0.55-1.30); POTASSIUM 4.2 MMOL/L (3.5-5.1); SODIUM 141 MMOL/L (136-145)
--- NOTE | 2020-08-28 07:32 | NUR ---
NURSE NOTES: Report received from Stefanie DAMON. Patent seen on rounds, AxOx4,n not in distress or pain. NPO since midnight for CT procedure, education reinforced and pt verbalized understanding. PIV on left upper arm patent and infusing D51/2 NS +20KCL@ 75cc/hr. Wound dressing intact. Bed low and locked, siderails up x 2, call light placed within reach and instructed to call nurse for assistance. Will continue to monitor.
[2020-08-28 08:00] VITALS: BP 137/65
[2020-08-28] MEDS: Docusate 100mg cap ORAL SCH ×2 (08:26→20:29)
[2020-08-28] MEDS: Thiamine 100mg tab ORAL SCH (08:26)
--- NOTE | 2020-08-28 10:25 | Nephrology Progress Note ---
Assessment/Plan Plan #Symptomatic acute on chronic anemia #Possibly related to chronic blood loss from left ear wound #Chronic pain #Peripheral neuropathy #Bitemporal wasting, hypoalbuminemia #Severe protein calorie malnutrition -getting 2 units RBC in ED Refusing EGD/Colon CT A/P pending for tomorrow as patient did not wish to remain NPO today -monitor CBC -PT/OT eval -Fall and aspiration precautions -RD eval -Ensure TID Subjective ROS Limited/Unobtainable: No Constitutional: Reports: weakness HEENT: Denies: no symptoms, eye pain, blurred vision, tearing, double vision, ear pain, ear discharge, nose pain, nose congestion, throat pain, throat swe lling, mouth pain, mouth swelling, other Genitourinary: Denies: no symptoms, burning, discharge, frequency, flank pain, hematuria, incontinence, pain, urgency, other Neurologic/Psychiatric: Denies: no symptoms, anxiety, depressed, emotional problems, headache, numbness, paresthesia, pre-existing deficit, seizure, tingling, tremors, weakness, other Subjective No acute events overnight Refusing EGD/Colon CT A/P pending Objective Objective Last 24 Hour Vital Signs Date Time Temp Pulse Resp B/P (MAP) Pulse Ox O2 Delivery O2 Flow Rate FiO2 08/28/20 06:49 97.9 08/28/20 04:00 97.9 89 18 141/75 (97) 99 08/28/20 00:17 97.6 08/28/20 00:00 97.6 93 16 146/80 (102) 100 08/27/20 23:11 98.2 08/27/20 21:00 Room Air 08/27/20 20:00 98.2 96 16 130/71 (90) 99 08/27/20 16:00 98.2 65 20 135/70 (91) 100 08/27/20 12:00 98.0 82 20 133/64 (87) 100 Intake and Output 08/27/20 08/28/20 19:00 07:00 Intake Total 315 ml 1185 ml Balance 315 ml 1185 ml Intake Oral 240 ml 360 ml IV Total 75 ml 825 ml # Voids 2 3 # Bowel Movements 2 Laboratory Tests 08/27/20 12:20: Stool Occult Blood Positive 08/28/20 05:15: White Blood Count 3.1L, Red Blood Count 4.02L, Hemoglobin 11.4L, Hematocrit 36.2L, Mean Corpuscular Volume 90, Mean Corpuscular Hemoglobin 28.4, Mean Corpuscular Hemoglobin Concent 31.5L, Red Cell Distribution Width 17.5H, Platelet Count 432, Mean Platelet Volume 5.0L, Neutrophils (%) (Auto) , Lymph ocytes (%) (Auto) , Monocytes (%) (Auto) , Eosinophils (%) (Auto) , Basophils (%) (Auto) , Neutrophils % (Manual) [Pending], Lymphocytes % (Manual) [Pending], Platelet Estimate [Pending], Platelet Morphology [Pending], Sodium Level 141, Potassium Level 4.2, Chloride Level 109H, Carbon Dioxide Level 26, Anion Gap 7, Blood Urea Nitrogen 17, Creatinine 0.7, Estimat Glomerular Filtration Rate > 60, Glucose Level 86, Calcium Level 8.8 Height (Feet): 5 Height (Inches): 3.00 Weight (Pounds): 74 Objective General Appearance: no apparent distress, alert Lines, tubes and drains: peripheral HEENT: normocephalic, atraumatic Neck: non-tender, normal alignment Respiratory/Chest: chest wall non-tender, lungs clear Cardiovascular/Chest: normal peripheral pulses, normal rate Abdomen: normal bowel sounds, non tender Extremities: normal range of motion, non-tender Skin Exam: normal pigmentation Neurologic: alert, oriented x 3 Gisela Martinez M.D. Aug 28, 2020 10:25
--- NOTE | 2020-08-28 11:13 | Diagnostic Imaging Report ---
EXAM: CT CT Abdomen Pelvis w/Contrast INDICATION: Reason For Exam: ABD PAIN. COMPARISON: None TECHNIQUE: Axial images were obtained through the abdomen pelvis with intravenous contrast. Sagittal and coronal reformats are generated. All CT scans at this facility are performed using dose modulation techniques as appropriate to a performed exam including the following: automated exposure control with adjustment of the mA and/or kV according to patient size. RADIATION DOSE: CTDIvol: 2.6 mGy DLP: 116.7 mGy-cm Dose information generated by the CT scanner is available in PACS. FINDINGS: Some emphysematous changes noted within the lung bases. Mild atelectasis is noted. The liver and spleen are homogeneous. Gallbladder is without sludge or stone and there is no wall thickening. The pancreas is unremarkable. Adrenals are normal in morphology. Small left renal cyst noted. Small bowel loops are nondistended. The colon contains fluid and some air fluid levels. Question history of diarrheal disease. No focal obstruction noted. The patient is thin with very little intra-abdominal fat and bowel loops are tightly coalescent. Appendix is not distinctly seen. There is no free fluid or free air. No pathologic adenopathy demonstrated. Urinary bladder appears unremarkable. There is no suspicious superficial soft tissue or osseous abnormality. IMPRESSION: FLUID AND AIR-FLUID LEVELS NOTED WITHIN THE COLON. QUESTION HISTORY OF DIARRHEAL DISEASE. OTHERWISE NO SIGN OF ACUTE DISEASE IN THE ABDOMEN AND PELVIS. EMPHYSEMATOUS CHANGES IN THE LUNG BASES. SMALL LEFT RENAL CYST.
[2020-08-28] MEDS: D5 1/2NS w/KCl 20mEq 1,000 ML IV SCH (11:40)
[2020-08-28 12:00] VITALS: BP 122/62
--- NOTE | 2020-08-28 12:24 | General Progress Note ---
Subjective ROS Limited/Unobtainable: Yes Allergies: Coded Allergies: MORPHINE (Verified Allergy, Unknown, 08/24/20) SULFAMETHOXAZOLE (Verified Allergy, Unknown, 08/24/20) TRIMETHOPRIM (Verified Allergy, Unknown, 08/24/20) Objective Last 24 Hour Vital Signs Date Time Temp Pulse Resp B/P (MAP) Pulse Ox O2 Delivery O2 Flow Rate FiO2 08/28/20 09:00 Room Air 08/28/20 08:00 97.5 67 18 137/65 (89) 99 08/28/20 06:49 97.9 08/28/20 04:00 97.9 89 18 141/75 (97) 99 08/28/20 00:17 97.6 08/28/20 00:00 97.6 93 16 146/80 (102) 100 08/27/20 23:11 98.2 08/27/20 21:00 Room Air 08/27/20 20:00 98.2 96 16 130/71 (90) 99 08/27/20 16:00 98.2 65 20 135/70 (91) 100 Intake and Output 08/27/20 08/28/20 19:00 07:00 Intake Total 315 ml 1185 ml Balance 315 ml 1185 ml Intake Oral 240 ml 360 ml IV Total 75 ml 825 ml # Voids 2 3 # Bowel Movements 2 Laboratory Tests 08/28/20 05:15: White Blood Count 3.1L, Red Blood Count 4.02L, Hemoglobin 11.4L, Hematocrit 36.2L, Mean Corpuscular Volume 90, Mean Corpuscular Hemoglobin 28.4, Mean Corpuscular Hemoglobin Concent 31.5L, Red Cell Distribution Width 17.5H, Platelet Count 432, Mean Platelet Volume 5.0L, Neutrophils (%) (Auto) , Lymphocytes (%) (Auto) , Monocytes (%) (Auto) , Eosinophils (%) (Auto) , Basophils (%) (Auto) , Differential Total Cells Counted 100, Neutrophils % (Manual) 33L, Lymphocytes % (Manual) 34, Monocytes % (Manual) 12H, Eosinophils % (Manual) 16H, Basophils % (Manual) 3H, Band Neutrophils 2, Platelet Estimate Adequate, Platelet Morphology Normal, Anisocytosis 1+, Sodium Level 141, Potassium Level 4.2, Chloride Level 109H, Carbon Dioxide Level 26, Anion Gap 7, Blood Urea Nitrogen 17, Creatinine 0.7, Estimat Glomerular Filtration Rate > 60, Glucose Level 86, Calcium Level 8.8 Height (Feet): 5 Height (Inches): 3.00 Weight (Pounds): 74 General Appearance: no apparent distress EENT: normal ENT inspection Neck: supple Cardiovascular: normal rate Respiratory/Chest: decreased breath sounds Abdomen: hypoactive bowel sounds Extremities: non-tender Assessment/Plan Problem List: (1) GERD (gastroesophageal reflux disease) ICD Codes: K21.9 - Gastro-esophageal reflux disease without esophagitis SNOMED: 295742702 (2) Cachexia ICD Codes: R64 - Cachexia SNOMED: 163546637 (3) Neuropathy ICD Codes: G62.9 - Polyneuropathy, unspecified SNOMED: 394881517 (4) Acute anemia ICD Codes: D64.9 - Anemia, unspecified SNOMED: 0477051, 019311205 (5) UTI (urinary tract infection) ICD Codes: N39.0 - Urinary tract infection, site not specified SNOMED: 86781050 Assessment/Plan: cea plan EGd and colonoscopy>>>patient refusing stool ob>>positive s/p blood transfusion abx for UTI CT reviewed plan EGD and colonoscopy if patient agrees James Alejandre MD Aug 28, 2020 12:24
--- NOTE | 2020-08-28 13:09 | NUR ---
RD ASSESSMENT & RECOMMENDATIONS SEE CARE ACTIVITY FOR COMPLETE ASSESSMENT DAILY ESTIMATED NEEDS: Needs based on Underweight, wounds 34kg 30-35 kcals/kg 6999-0225 total kcals 1.25-1.5 g protein/kg 42-51 g total protein 25-35ml/kcal mL/kg 850-1190 total fluid mLs NUTRITION DIAGNOSIS: Increased kcal/prot needs r/t underweight status and wound healing as evidenced by BMI underweight per guidelines, pt is 65% of [place] Body Weight, pt admitted w/ DTPI wounds @Lt hip and Rt trochanter and non-blanchable erythema @ BL heels. CURRENT DIET:regular PO DIET RECOMMENDATIONS: REGULAR/ texture as tolerated ADDITIONAL RECOMMENDATIONS: 1) Obtain a standing weight as able or recalibrated bed scale wt 2) BG borderline low (73, 77), monitor closely for hypoglycemia monitor need for bedside BG checks 3) Ensure Enlive TID w/ meals 4) Wound healing: add MVI x 1, Vit C 500mg QD, ZnSO4 220mg QD x 10 days [place] BID
--- NOTE | 2020-08-28 13:38 | NUR ---
[facility]URANCE [employer]INICALS FAXED TO [facility] PH#[phone] FX [phone]
--- NOTE | 2020-08-28 13:57 | General Progress Note ---
Subjective Date patient seen: Aug 28, 2020 Time patient seen: 13:56 ROS Limited/Unobtainable: No Constitutional: Denies: chills, fever Cardiovascular: Denies: chest pain Respiratory: Denies: cough Gastrointestinal/Abdominal: Denies: abdominal pain Neurologic/Psychiatric: Reports: headache Allergies: Coded Allergies: MORPHINE (Verified Allergy, Unknown, 08/24/20) SULFAMETHOXAZOLE (Verified Allergy, Unknown, 08/24/20) TRIMETHOPRIM (Verified Allergy, Unknown, 08/24/20) Subjective No acute events overnight, intermittent headache and insomnia Refusing EGD/Colon CT A/P without definite findings Objective Last 24 Hour Vital Signs Date Time Temp Pulse Resp B/P (MAP) Pulse Ox O2 Delivery O2 Flow Rate FiO2 08/28/20 09:00 Room Air 08/28/20 08:00 97.5 67 18 137/65 (89) 99 08/28/20 06:49 97.9 08/28/20 04:00 97.9 89 18 141/75 (97) 99 08/28/20 00:17 97.6 08/28/20 00:00 97.6 93 16 146/80 (102) 100 08/27/20 23:11 98.2 08/27/20 21:00 Room Air 08/27/20 20:00 98.2 96 16 130/71 (90) 99 08/27/20 16:00 98.2 65 20 135/70 (91) 100 Intake and Output 08/27/20 08/28/20 19:00 07:00 Intake Total 315 ml 1185 ml Balance 315 ml 1185 ml Intake Oral 240 ml 360 ml IV Total 75 ml 825 ml # Voids 2 3 # Bowel Movements 2 Laboratory Tests 08/28/20 05:15: White Blood Count 3.1L, Red Blood Count 4.02L, Hemoglobin 11.4L, Hematocrit 36.2L, Mean Corpuscular Volume 90, Mean Corpuscular Hemoglobin 28.4, Mean Corpuscular Hemoglobin Concent 31.5L, Red Cell Distribution Width 17.5H, Platelet Count 432, Mean Platelet Volume 5.0L, Neutrophils (%) (Auto) , Lymphocytes (%) (Auto) , Monocytes (%) (Auto) , Eosinophils (%) (Auto) , Basophils (%) (Auto) , Differential Total Cells Counted 100, Neutrophils % (Manual) 33L, Lymphocytes % (Manual) 34, Monocytes % (Manual) 12H, Eosinophils % (Manual) 16H, Basophils % (Manual) 3H, Band Neutrophils 2, Platelet Estimate Adequate, Platelet Morphology Normal, Anisocytosis 1+, Sodium Level 141, Potas sium Level 4.2, Chloride Level 109H, Carbon Dioxide Level 26, Anion Gap 7, Blood Urea Nitrogen 17, Creatinine 0.7, Estimat Glomerular Filtration Rate > 60, Glucose Level 86, Calcium Level 8.8 Height (Feet): 5 Height (Inches): 3.00 Weight (Pounds): 74 General Appearance: alert Neck: supple Cardiovascular: normal rate, regular rhythm Respiratory/Chest: lungs clear, normal breath sounds Assessment/Plan Assessment/Plan: 60-year-old female presents from nursing facility for evaluation of acute (symptomatic) on chronic anemia #Symptomatic acute on chronic anemia, improved #Acute blood loss anemia, POA #Fecal occult blood pos -continue inpatient care -s/p 2 units RBC -monitor CBC -PT/OT eval -Fall and aspiration precautions -Patient refusing EGD/colon -Ct A/P results reviewed #Headache -check CT head -symptomatic care #Citrobacter UTI -given ceftriaxone in ED -Change Zosyn to ceftriaxone based on cultures -Follow up final urine culture #Chronic pain #Peripheral neuropathy -cont outpatient pain regimen -Morphine changed to Dilaudid #Bitemporal wasting, hypoalbuminemia #Severe protein calorie malnutrition -RD eval -Patient refusing endoscopic evaluation -Ensure TID I [id number] on this patient's case, and 20minutes was dedicated to counseling and/or care coordination. D/w RN, consultants Flaquito Villanueva MD Aug 28, 2020 13:57
[2020-08-28] MEDS ORDERED: HYDROmorphone 1mg/ml Carpuject IVP SCH (14:00)
--- NOTE | 2020-08-28 15:14 | Diagnostic Imaging Report ---
Indication: Headache Technique: Continuous helical CT scanning of the head was performed utilizing automated exposure control without intravenous contrast material. Axial and coronal reconstructions were obtained. Comparison: None CT dose: Total DLP 965.4 mGycm; CTDI vol 53.4 mGy Findings: There is no acute intracranial hemorrhage, mass effect or cortical edema. There is no shift of the midline structures. The ventricles, cisterns and sulci are prominent consistent with atrophy. Periventricular hypoattenuation is seen, a nonspecific finding. Visualized mastoid air cells and paranasal sinuses are unremarkable. No focal lesions of the bony calvarium or soft tissues of the scalp are seen. IMPRESSION: No evidence of acute intracranial hemorrhage, mass effect or cortical edema. MRI recommended for more sensitive evaluation as clinically indicated. Atrophy and nonspecific periventricular hypoattenuation suggestive of chronic ischemic microvascular changes. The CT scanner at [facility] is accredited by the [employer] and the scans are performed using protocols designed to limit radiation exposure to as low as reasonably achievable to attain images of sufficient resolution adequate for diagnostic evaluation.
[2020-08-28] MEDS: cefTRIAXone 1 GM in D5W 55 ML IVPB SCH (15:33)
[2020-08-28 16:00] VITALS: BP 107/61
--- NOTE | 2020-08-28 17:16 | Surgery Progress Note ---
Surgery Progress Note Subjective Symptoms: improved, pain absent, tolerating diet, voiding well, passing flatus, BM Objective Last 24 Hour Vital Signs Date Time Temp Pulse Resp B/P (MAP) Pulse Ox O2 Delivery O2 Flow Rate FiO2 08/28/20 16:00 98.5 75 18 107/61 (76) 100 08/28/20 12:00 98.1 70 18 122/62 (82) 100 08/28/20 09:00 Room Air 08/28/20 08:00 97.5 67 18 137/65 (89) 99 08/28/20 06:49 97.9 08/28/20 04:00 97.9 89 18 141/75 (97) 99 08/28/20 00:17 97.6 08/28/20 00:00 97.6 93 16 146/80 (102) 100 08/27/20 23:11 98.2 08/27/20 21:00 Room Air 08/27/20 20:00 98.2 96 16 130/71 (90) 99 I&O Intake and Output 08/27/20 08/28/20 19:00 07:00 Intake Total 315 ml 1185 ml Balance 315 ml 1185 ml Intake Oral 240 ml 360 ml IV Total 75 ml 825 ml # Voids 2 3 # Bowel Movements 2 Dressing: dry Wound: clean Cardiovascular: RSR Respiratory: clear Abdomen: soft, flat, non-tender, present bowel sounds, non-distended Extremities: no edema, no tenderness, no cyanosis Laboratory Tests Test 08/28/20 05:15 White Blood Count 3.1 K/UL (4.8-10.8) L Red Blood Count 4.02 M/UL (4.20-5.40) L Hemoglobin 11.4 G/DL (12.0-16.0) L Hematocrit 36.2 % (37.0-47.0) L Mean Corpuscular Volume 90 FL (80-99) Mean Corpuscular Hemoglobin 28.4 PG (27.0-31.0) Mean Corpuscular Hemoglobin Concent 31.5 G/DL (32.0-36.0) L Red Cell Distribution Width 17.5 % (11.6-14.8) H Platelet Count 432 K/UL (150-450) Mean Platelet Volume 5.0 FL (6.5-10.1) L Neutrophils (%) (Auto) % (45.0-75.0) Lymphocytes (%) (Auto) % (20.0-45.0) Monocytes (%) (Auto) % (1.0-10.0) Eosinophils (%) (Auto) % (0.0-3.0) Basophils (%) (Auto) % (0.0-2.0) Differential Total Cells Counted 100 Neutrophils % (Manual) 33 % (45-75) L Lymphocytes % (Manual) 34 % (20-45) Monocytes % (Manual) 12 % (1-10) H Eosinophils % (Manual) 16 % (0-3) H Basophils % (Manual) 3 % (0-2) H Band Neutrophils 2 % (0-8) Platelet Estimate Adequate Platelet Morphology Normal Anisocytosis 1+ Sodium Level 141 MMOL/L (136-145) Potassium Level 4.2 MMOL/L (3.5-5.1) Chloride Level 109 MMOL/L (98-107) H Carbon Dioxide Level 26 MMOL/L (21-32) Anion Gap 7 mmol/L (5-15) Blood Urea Nitrogen 17 mg/dL (7-18) Creatinine 0.7 MG/DL (0.55-1.30) Estimat Glomerular Filtration Rate > 60 mL/min (>60) Glucose Level 86 MG/DL (74-106) Calcium Level 8.8 MG/DL (8.5-10.1) Plan Problems: (1) Abdominal pain Assessment & Plan: 60F with anemia c/o pain all over including 8/10 abd pain requesting more pain medication IV instead of oral po meds. no n/v/f/c. hungry tolerating diet. passing flatus. transfused prbc and h/h improved. stool studies pending. GI eval noted. abd exam benign. no acute abdomen. soft nt/nd bs+. has bowel function. no acute surgical intervention planned. okay for diet. AM kub. trend labs. will follow with exam and recs. thank you (2) UTI (urinary tract infection) (3) Cachexia (4) Neuropathy (5) GERD (gastroesophageal reflux disease) (6) Acute anemia Ramos Nathan Aug 28, 2020 17:16
--- NOTE | 2020-08-28 19:52 | NUR ---
NURSE HAND-OFF: Important Events on Shift: CT of abdomen and head done, given 1 dose IV dilaudid Patient Status: Stable Diet: Regular Pending Orders: N Pending Results/Labs:N Pending MD notification:N Latest Vital Signs: Temperature 98.5 , Pulse 75 , B/P 107 /61 , Respiratory Rate 18 , O2 SAT 100 , Room Air, O2 Flow Rate . Vital Sign Comment: Latest Junior Fall Score: 45 Fall Risk: High Risk Safety Measures: Call light Within Reach, Bed Alarm Zone 2, Side Rails Side Rails x2, Bed position Low and Locked. Fall Precautions: Yellow Socks Yellow Gown Patient Fall Education Report given to Shelby RN.
[2020-08-28 20:00] VITALS: BP 124/66
[2020-08-29] VITALS (8 sets, daily range): BP systolic 115–161; BP diastolic 72–98
[2020-08-29] MEDS: D5 1/2NS w/KCl 20mEq 1,000 ML IV SCH ×2 (01:01→12:47)
[2020-08-29] MEDS: HYDROmorphone 2mg tab ORAL PRN ×2 (04:08→10:10)
--- NOTE | 2020-08-29 07:30 | NUR ---
nurse notes received patient resting comfortably in bed, eating breakfast, denies pain or discomfort at this time, on fall and aspiration precaution , plan of care was discussed verbalized understanding 4 P's in progress call light w/n easy reach will continue to monitor patient condition cori montemayor
[2020-08-29] MEDS: Thiamine 100mg tab ORAL SCH (08:41)
[2020-08-29] MEDS: Docusate 100mg cap ORAL SCH ×2 (08:41→20:13)
--- NOTE | 2020-08-29 08:42 | Surgery Progress Note ---
Surgery Progress Note Subjective Additional Comments afebrile, HD stable labs noted no n/v CT reviewed Objective Last 24 Hour Vital Signs Date Time Temp Pulse Resp B/P (MAP) Pulse Ox O2 Delivery O2 Flow Rate FiO2 08/29/20 08:00 97.3 81 20 131/72 (91) 99 08/29/20 04:00 98.0 90 20 115/80 (92) 100 08/29/20 00:00 97.4 103 20 120/72 (88) 99 08/28/20 21:00 Room Air 08/28/20 20:00 97.8 94 20 124/66 (85) 96 08/28/20 16:00 98.5 75 18 107/61 (76) 100 08/28/20 12:00 98.1 70 18 122/62 (82) 100 08/28/20 09:00 Room Air I&O Intake and Output 08/28/20 08/29/20 19:00 07:00 Intake Total 400 ml Balance 400 ml Intake Oral 400 ml # Voids 3 2 # Bowel Movements 1 3 Cardiovascular: RSR Respiratory: clear Abdomen: soft, flat, non-tender, present bowel sounds Extremities: no edema, no tenderness, no cyanosis Plan Problems: (1) Abdominal pain Assessment & Plan: 60F with anemia c/o pain all over including 8/10 abd pain requesting more pain medication IV instead of oral po meds. no n/v/f/c. hungry tolerating diet. passing flatus. transfused prbc and h/h improved. stool studies pending. GI eval noted. abd exam benign. no acute abdomen. soft nt/nd bs+. has bowel function. no acute surgical intervention planned. okay for diet. AM kub. trend labs. will follow with exam and recs. thank you Some emphysematous changes noted within the lung bases. Mild atelectasis is noted. The liver and spleen are homogeneous. Gallbladder is without sludge or stone and there is no wall thickening. The pancreas is unremarkable. Adrenals are normal in morphology. Small left renal cyst noted. Small bowel loops are nondistended. The colon contains fluid and some air fluid levels. Question history of diarrheal disease. No focal obstruction noted. The patient is thin with very little intra-abdominal fat and bowel loops are tightly coalescent. Appendix is not distinctly seen. There is no free fluid or free air. No pathologic adenopathy demonstrated. Urinary bladder appears unremarkable. There is no suspicious superficial soft tissue or osseous abnormality. IMPRESSION: FLUID AND AIR-FLUID LEVELS NOTED WITHIN THE COLON. QUESTION HISTORY OF DIARRHEAL DISEASE. OTHERWISE NO SIGN OF ACUTE DISEASE IN THE ABDOMEN AND PELVIS. EMPHYSEMATOUS CHANGES IN THE LUNG BASES. SMALL LEFT RENAL CYST. (2) UTI (urinary tract infection) (3) Cachexia (4) Neuropathy (5) GERD (gastroesophageal reflux disease) (6) Acute anemia Ramos Nathan Aug 29, 2020 08:41
--- NOTE | 2020-08-29 10:20 | NUR ---
nurse notes patient refused air loss mattress , she removed mepilex on her sacral area, we tried to do picture on her sacral area, she said she have no wounds cori montemayor
--- NOTE | 2020-08-29 12:08 | General Progress Note ---
Subjective Date patient seen: Aug 29, 2020 Time patient seen: 08:00 Constitutional: Denies: chills, fever Cardiovascular: Denies: chest pain Respiratory: Denies: cough Gastrointestinal/Abdominal: Denies: abdominal pain Allergies: Coded Allergies: MORPHINE (Verified Allergy, Unknown, 08/24/20) SULFAMETHOXAZOLE (Verified Allergy, Unknown, 08/24/20) TRIMETHOPRIM (Verified Allergy, Unknown, 08/24/20) Subjective No acute events overnight, intermittent headache and insomnia Refusing EGD/Colon CT A/P without definite findings CT head negative Objective Last 24 Hour Vital Signs Date Time Temp Pulse Resp B/P (MAP) Pulse Ox O2 Delivery O2 Flow Rate FiO2 08/29/20 09:00 Room Air 08/29/20 08:00 97.3 81 20 131/72 (91) 99 08/29/20 04:00 98.0 90 20 115/80 (92) 100 08/29/20 00:00 97.4 103 20 120/72 (88) 99 08/28/20 21:00 Room Air 08/28/20 20:00 97.8 94 20 124/66 (85) 96 08/28/20 16:00 98.5 75 18 107/61 (76) 100 Intake and Output 08/28/20 08/29/20 19:00 07:00 Intake Total 400 ml Balance 400 ml Intake Oral 400 ml # Voids 3 2 # Bowel Movements 1 3 Height (Feet): 5 Height (Inches): 3.00 Weight (Pounds): 74 General Appearance: alert Neck: normal alignment, supple Cardiovascular: normal rate, regular rhythm Abdomen: non tender, soft Assessment/Plan Assessment/Plan: 60-year-old female presents from nursing facility for evaluation of acute (symptomatic) on chronic anemia #Symptomatic acute on chronic anemia, improved #Acute blood loss anemia, POA #Fecal occult blood pos -continue inpatient care -s/p 2 units RBC -monitor CBC -PT/OT eval -Fall and aspiration precautions -Patient refusing EGD/colon -Ct A/P results reviewed #Headache -CT head neg -symptomatic care, change Dilaudid to oxycodone IR per patient request #Citrobacter UTI -cont ceftriaxone #Chronic pain #Peripheral neuropathy -cont outpatient pain regimen #Bitemporal wasting, hypoalbuminemia #Severe protein calorie malnutrition -RD eval -Patient refusing endoscopic evaluation -Ensure TID I [id number] on this patient's case, and 20minutes was dedicated to co unseling and/or care coordination. D/w RN, consultants Flaquito Villanueva MD Aug 29, 2020 12:08
--- NOTE | 2020-08-29 12:51 | NUR ---
CASE MANAGEMENT:REVIEW 08/29/20 SI: SYMPTOMATIC ANEMIA. UTI 97.1 73 18 161/98 99% ON RA NO LABS TODAY IS: IV ROCEPHIN Q24 IVF@75/HR PROTONIX PO QD REMERON PO QHS : MED/SURG STATUS DCP: FROM [facility]
[2020-08-29] MEDS: oxyCODONE 5mg IR tab ORAL PRN ×2 (15:38→20:15)
[2020-08-29] MEDS: cefTRIAXone 1 GM in D5W 55 ML IVPB SCH (15:39)
--- NOTE | 2020-08-29 18:58 | Nephrology Progress Note ---
Assessment/Plan Plan #Symptomatic acute on chronic anemia #Possibly related to chronic blood loss from left ear wound #Chronic pain #Peripheral neuropathy #Bitemporal wasting, hypoalbuminemia #Severe protein calorie malnutrition -getting 2 units RBC in ED Refusing EGD/Colon CT A/P pending for tomorrow as patient did not wish to remain NPO today -monitor CBC -PT/OT eval -Fall and aspiration precautions -RD eval -Ensure TID Subjective Subjective No acute events overnight Refusing EGD/Colon CT A/P pending Objective Objective Last 24 Hour Vital Signs Date Time Temp Pulse Resp B/P (MAP) Pulse Ox O2 Delivery O2 Flow Rate FiO2 08/29/20 16:04 98.7 83 18 140/90 (107) 100 08/29/20 12:23 140/75 (96) 08/29/20 12:00 97.1 73 18 161/98 (119) 99 08/29/20 09:00 Room Air 08/29/20 08:00 97.3 81 20 131/72 (91) 99 08/29/20 04:00 98.0 90 20 115/80 (92) 100 08/29/20 00:00 97.4 103 20 120/72 (88) 99 08/28/20 21:00 Room Air 08/28/20 20:00 97.8 94 20 124/66 (85) 96 Intake and Output 08/28/20 08/29/20 19:00 07:00 Intake Total 400 ml Balance 400 ml Intake Oral 400 ml # Voids 3 2 # Bowel Movements 1 3 Height (Feet): 5 Height (Inches): 3.00 Weight (Pounds): 74 Objective General Appearance: no apparent distress, alert Lines, tubes and drains: peripheral HEENT: normocephalic, atraumatic Neck: non-tender, normal alignment Respiratory/Chest: chest wall non-tender, lungs clear Cardiovascular/Chest: normal peripheral pulses, normal rate Abdomen: normal bowel sounds, non tender Extremities: normal range of motion, non-tender Skin Exam: normal pigmentation Neurologic: alert, oriented x 3 Gisela Martinez M.D. Aug 29, 2020 18:58
--- NOTE | 2020-08-29 19:35 | NUR ---
NURSE NOTES: Received report from Saumya. AAO x 4 on RA, resting in bed. Denies labored breathing or discomfort. Commode at bedside. IV site intact and patent, running IVF. No acute distress noted. Bed lowest position, alarm on, side rails up, call light within reach. Will continue to monitor.
--- NOTE | 2020-08-29 20:11 | General Progress Note ---
Subjective Allergies: Coded Allergies: MORPHINE (Verified Allergy, Unknown, 08/24/20) SULFAMETHOXAZOLE (Verified Allergy, Unknown, 08/24/20) TRIMETHOPRIM (Verified Allergy, Unknown, 08/24/20) Subjective above noted feels ok tolerating PO no abdominal complaints Objective Last 24 Hour Vital Signs Date Time Temp Pulse Resp B/P (MAP) Pulse Ox O2 Delivery O2 Flow Rate FiO2 08/29/20 16:04 98.7 83 18 140/90 (107) 100 08/29/20 12:23 140/75 (96) 08/29/20 12:00 97.1 73 18 161/98 (119) 99 08/29/20 09:00 Room Air 08/29/20 08:00 97.3 81 20 131/72 (91) 99 08/29/20 04:00 98.0 90 20 115/80 (92) 100 08/29/20 00:00 97.4 103 20 120/72 (88) 99 08/28/20 21:00 Room Air Intake and Output 08/28/20 08/29/20 19:00 07:00 Intake Total 400 ml Balance 400 ml Intake Oral 400 ml # Voids 3 2 # Bowel Movements 1 3 Height (Feet): 5 Height (Inches): 3.00 Weight (Pounds): 74 Objective Thin woman NCAT supple CTA RRR abd soft no edema Assessment/Plan Assessment/Plan: Assessment/Plan Problem List: (1) GERD (gastroesophageal reflux disease) ICD Codes: K21.9 - Gastro-esophageal reflux disease without esophagitis SNOMED: 612305626 (2) Cachexia ICD Codes: R64 - Cachexia SNOMED: 415860647 (3) Neuropathy ICD Codes: G62.9 - Polyneuropathy, unspecified SNOMED: 931804533 (4) Acute anemia ICD Codes: D64.9 - Anemia, unspecified SNOMED: 5316472, 740496941 (5) UTI (urinary tract infection) ICD Codes: N39.0 - Urinary tract infection, site not specified SNOMED: 01007260 Plan: plan EGd and colonoscopy>>>patient refusing stool ob>>positive s/p blood transfusion abx for UTI CT reviewed plan EGD and colonoscopy if patient agrees Kevin Ambrosio MD Aug 29, 2020 20:11
[2020-08-30] VITALS (7 sets, daily range): BP systolic 83–126; BP diastolic 44–85
[2020-08-30] MEDS: D5 1/2NS w/KCl 20mEq 1,000 ML IV SCH ×2 (01:22→15:58)
[2020-08-30] MEDS: oxyCODONE 5mg IR tab ORAL PRN ×4 (01:23→22:11)
--- NOTE | 2020-08-30 06:23 | NUR ---
NURSE HAND-OFF: Important Events on Shift:pain management Patient Status: stable Diet: reg Pending Orders: [] Pending Results/Labs:[] Pending MD notification:[] Latest Vital Signs: Temperature 97.6 , Pulse 87 , B/P 110 /67 , Respiratory Rate 16 , O2 SAT 97 , Room Air, O2 Flow Rate . Vital Sign Comment: [] Latest Junior Fall Score: 45 Fall Risk: High Risk Safety Measures: Call light Within Reach, Bed Alarm Zone 2, Side Rails Side Rails x2, Bed position Low and Locked. Fall Precautions: Yellow Socks Yellow Gown Patient Fall Education Addendum: 08/30/20 at 0656 by SANJEEV ESTES RN RN NURSE NOTES: Report given to Saumya
--- NOTE | 2020-08-30 07:07 | NUR ---
nurse notes received patient resting comfortably in bed, denies pain or discomfort at this time, IVF infusing well, on fall and aspiration precaution , plan of care was discussed verbalized understanding 4 P's in progress call light w/n easy reach will continue to monitor patient condition cori montemayor
[2020-08-30] MEDS: Thiamine 100mg tab ORAL SCH (08:07)
[2020-08-30] MEDS: Docusate 100mg cap ORAL SCH ×2 (08:08→20:13)
[2020-08-30] MEDS ORDERED: LORazepam 0.5mg tab ORAL PRN (10:15)
--- NOTE | 2020-08-30 10:43 | Surgery Progress Note ---
Surgery Progress Note Subjective Symptoms: improved, tolerating diet, passing flatus Objective Last 24 Hour Vital Signs Date Time Temp Pulse Resp B/P (MAP) Pulse Ox O2 Delivery O2 Flow Rate FiO2 08/30/20 08:00 98.2 91 16 96/62 (73) 98 08/30/20 08:00 Room Air 08/30/20 04:00 97.6 87 16 110/67 (81) 97 08/29/20 23:59 97.7 85 18 124/78 (93) 98 08/29/20 20:29 Room Air 08/29/20 20:00 97.5 90 18 129/74 (92) 98 08/29/20 16:04 98.7 83 18 140/90 (107) 100 08/29/20 12:23 140/75 (96) 08/29/20 12:00 97.1 73 18 161/98 (119) 99 I&O Intake and Output 08/29/20 08/30/20 19:00 07:00 Intake Total 1800 ml 480 ml Balance 1800 ml 480 ml Intake Oral 960 ml 480 ml IV Total 840 ml # Voids 3 4 # Bowel Movements 4 1 Cardiovascular: RSR Respiratory: clear Abdomen: soft, non-tender, present bowel sounds, non-distended Extremities: no edema, no tenderness, no cyanosis Plan Problems: (1) Abdominal pain Assessment & Plan: 60F with anemia c/o pain all over including 8/10 abd pain requesting more pain medication IV instead of oral po meds. no n/v/f/c. hungry tolerating diet. passing flatus. transfused prbc and h/h improved. stool studies pending. GI eval noted. abd exam benign. no acute abdomen. soft nt/nd bs+. has bowel function. no acute surgical intervention planned. okay for diet. AM kub. trend labs. will follow with exam and recs. thank you Some emphysematous changes noted within the lung bases. Mild atelectasis is noted. The liver and spleen are homogeneous. Gallbladder is without sludge or stone and there is no wall thickening. The pancreas is unremarkable. Adrenals are normal in morphology. Small left renal cyst noted. Small bowel loops are nondistended. The colon contains fluid and some air fluid levels. Question history of diarrheal disease. No focal obstruction noted. The patient is thin with very little intra-abdominal fat and bowel loops are tightly coalescent. Appendix is not distinctly seen. There is no free fluid or free air. No pathologic adenopathy demonstrated. Urinary bladder appears unremarkable. There is no suspicious superficial soft tissue or osseous abnormality. IMPRESSION: FLUID AND AIR-FLUID LEVELS NOTED WITHIN THE COLON. QUESTION HISTORY OF DIARRHEAL DISEASE. OTHERWISE NO SIGN OF ACUTE DISEASE IN THE ABDOMEN AND PELVIS. EMPHYSEMATOUS CHANGES IN THE LUNG BASES. SMALL LEFT RENAL CYST. (2) UTI (urinary tract infection) (3) Cachexia (4) Neuropathy (5) GERD (gastroesophageal reflux disease) (6) Acute anemia Ramos Nathan Aug 30, 2020 10:43
--- NOTE | 2020-08-30 11:26 | General Progress Note ---
Subjective Date patient seen: Aug 30, 2020 Time patient seen: 11:25 Constitutional: Denies: chills Cardiovascular: Denies: chest pain Respiratory: Denies: cough Neurologic/Psychiatric: Reports: headache Allergies: Coded Allergies: MORPHINE (Verified Allergy, Unknown, 08/24/20) SULFAMETHOXAZOLE (Verified Allergy, Unknown, 08/24/20) TRIMETHOPRIM (Verified Allergy, Unknown, 08/24/20) Subjective No acute events overnight, still with intermittent headache Refusing EGD/Colon CT A/P without definite findings CT head negative Objective Last 24 Hour Vital Signs Date Time Temp Pulse Resp B/P (MAP) Pulse Ox O2 Delivery O2 Flow Rate FiO2 08/30/20 08:00 98.2 91 16 96/62 (73) 98 08/30/20 08:00 Room Air 08/30/20 04:00 97.6 87 16 110/67 (81) 97 08/29/20 23:59 97.7 85 18 124/78 (93) 98 08/29/20 20:29 Room Air 08/29/20 20:00 97.5 90 18 129/74 (92) 98 08/29/20 16:04 98.7 83 18 140/90 (107) 100 08/29/20 12:23 140/75 (96) 08/29/20 12:00 97.1 73 18 161/98 (119) 99 Intake and Output 08/29/20 08/30/20 19:00 07:00 Intake Total 1800 ml 480 ml Balance 1800 ml 480 ml Intake Oral 960 ml 480 ml IV Total 840 ml # Voids 3 4 # Bowel Movements 4 1 Height (Feet): 5 Height (Inches): 3.00 Weight (Pounds): 74 General Appearance: alert Neck: normal alignment, supple Cardiovascular: normal rate, regular rhythm Respiratory/Chest: lungs clear, normal breath sounds Assessment/Plan Assessment/Plan: 60-year-old female presents from nursing facility for evaluation of acute (symptomatic) on chronic anemia #Symptomatic acute on chronic anemia, improved #Acute blood loss anemia, POA #Fecal occult blood pos -continue inpatient care -s/p 2 units RBC -monitor CBC -PT/OT eval -Fall and aspiration precautions -Patient refusing EGD/colon -Ct A/P results reviewed #Headache -CT head neg -symptomatic care, cont symptomatic care #Citrobacter UTI -cont ceftriaxone #Chronic pain #Peripheral neuropathy -cont outpatient pain regimen #Bitemporal wasting, hypoalbuminemia #Severe protein calorie malnutrition -RD eval -Patient refusing endoscopic evaluation -Ensure TID I [id number] on this patient's case, and 20minutes was dedicated to counseling and/or care coordination. D/w RN, consultants Flaquito Villanueva MD Aug 30, 2020 11:26
--- NOTE | 2020-08-30 14:41 | NUR ---
NURSE HAND-OFF: Important Events on Shift:[pain management] Patient Status: [stable] Diet: [regular diet] Pending Orders: [none] Pending Results/Labs:[none] Pending MD notification:[none] Latest Vital Signs: Temperature 98.2 , Pulse 93 , B/P 94 /60 , Respiratory Rate 16 , O2 SAT 98 , Room Air, O2 Flow Rate . Vital Sign Comment: [stable] Latest Junior Fall Score: 45 Fall Risk: High Risk Safety Measures: Call light Within Reach, Bed Alarm Zone 2, Side Rails Side Rails x2, Bed position Low and Locked. Fall Precautions: Yellow Socks Yellow Gown Patient Fall Education Report given to [Meryl DAMON].
--- NOTE | 2020-08-30 15:00 | NUR ---
NURSE NOTES: RECEIVED PATIENT LYING IN BED, AWAKE, ALERT/ORIENTED X3, FORGETFUL. EYES CLOSED. AROUSABLE. ABLE TO VERBALIZE NEEDS, NO SIGNS AND SYMPTOMS OF ACUTE CARDIO-RESPIRATORY DISTRESS/SHORTNESS OF BREATH. DENIES CHEST PAIN, NO PERIPHERAL EDEMA NOTED. AFEBRILE. ABDOMEN FLAT/SOFT/NON TENDER/AUDIBLE BOWEL SOUNDS, NO REPORT OF N/V/D. SIDERAILS UP X3. BED IN LOWEST POSITION FOR SAFETY, ENCOURAGED PATIENT TO UTILIZE CALL LIGHT FOR ASSISTANCE, VERBALIZED UNDERSTANDING. BED ALARM AND LOCKED ENGAGED @ ALL TIMES. CONTINUE WITH CURRENT PLAN OF CARE.
[2020-08-30] MEDS: cefTRIAXone 1 GM in D5W 55 ML IVPB SCH (15:59)
--- NOTE | 2020-08-30 17:56 | Nephrology Progress Note ---
Assessment/Plan Plan #Symptomatic acute on chronic anemia #Possibly related to chronic blood loss from left ear wound #Chronic pain #Peripheral neuropathy #Bitemporal wasting, hypoalbuminemia #Severe protein calorie malnutrition -getting 2 units RBC in ED Refusing EGD/Colon CT A/P pending for tomorrow as patient did not wish to remain NPO today -monitor CBC -PT/OT eval -Fall and aspiration precautions -RD eval -Ensure TID Subjective Subjective No acute events overnight Refusing EGD/Colon CT A/P pending Objective Objective Last 24 Hour Vital Signs Date Time Temp Pulse Resp B/P (MAP) Pulse Ox O2 Delivery O2 Flow Rate FiO2 08/30/20 16:03 98.3 87 19 98/71 (80) 99 08/30/20 16:02 98.3 08/30/20 12:18 98.2 93 16 94/60 (71) 98 08/30/20 12:00 98.2 81 19 83/44 (57) 98 08/30/20 08:00 98.2 91 16 96/62 (73) 98 08/30/20 08:00 Room Air 08/30/20 04:00 97.6 87 16 110/67 (81) 97 08/29/20 23:59 97.7 85 18 124/78 (93) 98 08/29/20 20:29 Room Air 08/29/20 20:00 97.5 90 18 129/74 (92) 98 Intake and Output 08/29/20 08/30/20 19:00 07:00 Intake Total 1800 ml 480 ml Balance 1800 ml 480 ml Intake Oral 960 ml 480 ml IV Total 840 ml # Voids 3 4 # Bowel Movements 4 1 Height (Feet): 5 Height (Inches): 3.00 Weight (Pounds): 74 Objective General Appearance: no apparent distress, alert Lines, tubes and drains: peripheral HEENT: normocephalic, atraumatic Neck: non-tender, normal alignment Respiratory/Chest: chest wall non-tender, lungs clear Cardiovascular/Chest: normal peripheral pulses, normal rate Abdomen: normal bowel sounds, non tender Extremities: normal range of motion, non-tender Skin Exam: normal pigmentation Neurologic: alert, oriented x 3 Gisela Martinez M.D. Aug 30, 2020 17:56
--- NOTE | 2020-08-30 19:00 | General Progress Note ---
Subjective Allergies: Coded Allergies: MORPHINE (Verified Allergy, Unknown, 08/24/20) SULFAMETHOXAZOLE (Verified Allergy, Unknown, 08/24/20) TRIMETHOPRIM (Verified Allergy, Unknown, 08/24/20) Subjective above noted feels ok tolerating PO no abdominal complaints advised to decide re EGD/Colon Objective Last 24 Hour Vital Signs Date Time Temp Pulse Resp B/P (MAP) Pulse Ox O2 Delivery O2 Flow Rate FiO2 08/30/20 18:16 82 126/85 (99) 08/30/20 16:03 98.3 87 19 98/71 (80) 99 08/30/20 16:02 98.3 08/30/20 12:18 98.2 93 16 94/60 (71) 98 08/30/20 12:00 98.2 81 19 83/44 (57) 98 08/30/20 08:00 98.2 91 16 96/62 (73) 98 08/30/20 08:00 Room Air 08/30/20 04:00 97.6 87 16 110/67 (81) 97 08/29/20 23:59 97.7 85 18 124/78 (93) 98 08/29/20 20:29 Room Air 08/29/20 20:00 97.5 90 18 129/74 (92) 98 Intake and Output 08/29/20 08/30/20 19:00 07:00 Intake Total 1800 ml 480 ml Balance 1800 ml 480 ml Intake Oral 960 ml 480 ml IV Total 840 ml # Voids 3 4 # Bowel Movements 4 1 Height (Feet): 5 Height (Inches): 3.00 Weight (Pounds): 74 Objective Thin woman NCAT supple CTA RRR abd soft no edema Assessment/Plan Assessment/Plan: Assessment/Plan Problem List: (1) GERD (gastroesophageal reflux disease) ICD Codes: K21.9 - Gastro-esophageal reflux disease without esophagitis SNOMED: 471946223 (2) Cachexia ICD Codes: R64 - Cachexia SNOMED: 479555504 (3) Neuropathy ICD Codes: G62.9 - Polyneuropathy, unspecified SNOMED: 057893309 (4) Acute anemia ICD Codes: D64.9 - Anemia, unspecified SNOMED: 4671967, 657606349 (5) UTI (urinary tract infection) ICD Codes: N39.0 - Urinary tract infection, site not specified SNOMED: 41164156 Plan: plan EGd and colonoscopy>>>patient refusing stool ob>>positive s/p blood transfusion abx for UTI CT reviewed plan EGD and colonoscopy if patient agrees Kevin Ambrosio MD Aug 30, 2020 19:00
--- NOTE | 2020-08-30 19:10 | NUR ---
NURSE HAND-OFF: Important Events on Shift:[pain management; b/p monitoring] Patient Status: [stable] Diet: [reg] Pending Orders: [] Pending Results/Labs:[] Pending MD notification:[] Latest Vital Signs: Temperature 98.3 , Pulse 82 , B/P 126 /85 , Respiratory Rate 19 , O2 SAT 99 , Room Air, O2 Flow Rate . Vital Sign Comment: [] Latest Junior Fall Score: 45 Fall Risk: High Risk Safety Measures: Call light Within Reach, Bed Alarm Zone 2, Side Rails Side Rails x2, Bed position Low and Locked. Fall Precautions: Yellow Socks Yellow Gown Patient Fall Education Report given to [francesco].
--- NOTE | 2020-08-30 19:42 | NUR ---
NURSE NOTES: Patient in bed, awake and able to make needs known. On room air with no signs of distress. Stable. IV intact and patent. Bed locked and in lowest position. Bed alarm on. Will continue plan of care.
[2020-08-31] VITALS: BP 132/69
[2020-08-31 04:00] VITALS: BP 121/84
[2020-08-31] MEDS: D5 1/2NS w/KCl 20mEq 1,000 ML IV SCH (04:24)
[2020-08-31] MEDS: oxyCODONE 5mg IR tab ORAL PRN ×3 (04:26→15:08)
--- NOTE | 2020-08-31 06:39 | NUR ---
NURSE HAND-OFF: Important Events on Shift: No acute events Patient Status: Stable Diet: Reg Pending Orders: N/A Pending Results/Labs: No AM labs Pending MD notification: N/A Latest Vital Signs: Temperature 98.6 , Pulse 99 , B/P 121 /84 , Respiratory Rate 18 , O2 SAT 98 , Room Air, O2 Flow Rate . Vital Sign Comment: N/A Latest Junior Fall Score: 45 Fall Risk: High Risk Safety Measures: Call light Within Reach, Bed Alarm Zone 2, Side Rails Side Rails x2, Bed position Low and Locked. Fall Precautions: Yellow Socks Yellow Gown Patient Fall Education
--- NOTE | 2020-08-31 07:19 | General Progress Note ---
Subjective ROS Limited/Unobtainable: Yes Allergies: Coded Allergies: MORPHINE (Verified Allergy, Unknown, 08/24/20) SULFAMETHOXAZOLE (Verified Allergy, Unknown, 08/24/20) TRIMETHOPRIM (Verified Allergy, Unknown, 08/24/20) Objective Last 24 Hour Vital Signs Date Time Temp Pulse Resp B/P (MAP) Pulse Ox O2 Delivery O2 Flow Rate FiO2 08/31/20 04:00 98.6 99 18 121/84 (96) 98 08/31/20 00:00 98.9 93 18 132/69 (90) 98 08/30/20 21:00 Room Air 08/30/20 20:00 98.5 80 18 111/76 (88) 98 08/30/20 18:16 82 126/85 (99) 08/30/20 16:03 98.3 87 19 98/71 (80) 99 08/30/20 16:02 98.3 08/30/20 12:18 98.2 93 16 94/60 (71) 98 08/30/20 12:00 98.2 81 19 83/44 (57) 98 08/30/20 08:00 98.2 91 16 96/62 (73) 98 08/30/20 08:00 Room Air Intake and Output 08/30/20 08/31/20 19:00 07:00 Intake Total 1875 ml Output Total 300 ml Balance 1875 ml -300 ml Intake Oral 1200 ml IV Total 675 ml Output Urine Total 300 ml # Voids 2 2 Height (Feet): 5 Height (Inches): 3.00 Weight (Pounds): 74 General Appearance: no apparent distress EENT: normal ENT inspection Neck: supple Cardiovascular: normal rate Respiratory/Chest: decreased breath sounds Abdomen: normal bowel sounds, non tender, soft Extremities: non-tender Assessment/Plan Problem List: (1) GERD (gastroesophageal reflux disease) ICD Codes: K21.9 - Gastro-esophageal reflux disease without esophagitis SNOMED: 831530455 (2) Cachexia ICD Codes: R64 - Cachexia SNOMED: 267325613 (3) Neuropathy ICD Codes: G62.9 - Polyneuropathy, unspecified SNOMED: 954784953 (4) Acute anemia ICD Codes: D64.9 - Anemia, unspecified SNOMED: 6383212, 921433909 (5) UTI (urinary tract infection) ICD Codes: N39.0 - Urinary tract infection, site not specified SNOMED: 82455091 Assessment/Plan: cea plan EGd and colonoscopy>>>patient refusing stool ob>>positive>>>ordered repeat s/p blood transfusion abx for UTI CT reviewed plan EGD and colonoscopy if patient agrees James Alejandre MD Aug 31, 2020 07:19
--- NOTE | 2020-08-31 07:55 | NUR ---
NURSE NOTES: Patient awake, alert x4; on room air, no distress and shortness of breath; IV LFA D51/2NS W/Kcl 75cc running; dressing on Left ear in place; side rails up x2, breaks engaged, bed at lowest position; call light within reach; will keep monitoring.
[2020-08-31 08:00] VITALS: BP 100/60
[2020-08-31] MEDS: Docusate 100mg cap ORAL SCH (08:53)
[2020-08-31] MEDS: Thiamine 100mg tab ORAL SCH (08:53)
--- NOTE | 2020-08-31 09:30 | NUR ---
PT NOTE Attempted to see patient for PT treatment. Patient declining to participate due to c/o itching and pain bilateral hands. Will re-attempt later as schedule permits.
--- NOTE | 2020-08-31 11:08 | Nephrology Progress Note ---
Assessment/Plan Plan #Symptomatic acute on chronic anemia #Possibly related to chronic blood loss from left ear wound #Chronic pain #Peripheral neuropathy #Bitemporal wasting, hypoalbuminemia #Severe protein calorie malnutrition -getting 2 units RBC in ED Refusing EGD/Colon CT A/P pending for tomorrow as patient did not wish to remain NPO today -monitor CBC -PT/OT eval -Fall and aspiration precautions -RD eval -Ensure TID Subjective Subjective No acute events overnight Refusing EGD/Colon CT A/P pending Objective Objective Last 24 Hour Vital Signs Date Time Temp Pulse Resp B/P (MAP) Pulse Ox O2 Delivery O2 Flow Rate FiO2 08/31/20 09:00 Room Air 08/31/20 08:00 98.1 85 18 100/60 (73) 100 08/31/20 04:00 98.6 99 18 121/84 (96) 98 08/31/20 00:00 98.9 93 18 132/69 (90) 98 08/30/20 21:00 Room Air 08/30/20 20:00 98.5 80 18 111/76 (88) 98 08/30/20 18:16 82 126/85 (99) 08/30/20 16:03 98.3 87 19 98/71 (80) 99 08/30/20 16:02 98.3 08/30/20 12:18 98.2 93 16 94/60 (71) 98 08/30/20 12:00 98.2 81 19 83/44 (57) 98 Intake and Output 08/30/20 08/31/20 19:00 07:00 Intake Total 1875 ml 75 ml Output Total 300 ml Balance 1875 ml -225 ml Intake Oral 1200 ml IV Total 675 ml 75 ml Output Urine Total 300 ml # Voids 2 2 Height (Feet): 5 Height (Inches): 3.00 Weight (Pounds): 74 Objective General Appearance: no apparent distress, alert Lines, tubes and drains: peripheral HEENT: normocephalic, atraumatic Neck: non-tender, normal alignment Respiratory/Chest: chest wall non-tender, lungs clear Cardiovascular/Chest: normal peripheral pulses, normal rate Abdomen: normal bowel sounds, non tender Extremities: normal range of motion, non-tender Skin Exam: normal pigmentation Neurologic: alert, oriented x 3 Gisela Martinez M.D. Aug 31, 2020 11:08
[2020-08-31 12:00] VITALS: BP 114/72
--- NOTE | 2020-08-31 12:13 | Surgery Progress Note ---
Surgery Progress Note Subjective Symptoms: improved, tolerating diet, passing flatus Objective Last 24 Hour Vital Signs Date Time Temp Pulse Resp B/P (MAP) Pulse Ox O2 Delivery O2 Flow Rate FiO2 08/31/20 09:00 Room Air 08/31/20 08:00 98.1 85 18 100/60 (73) 100 08/31/20 04:00 98.6 99 18 121/84 (96) 98 08/31/20 00:00 98.9 93 18 132/69 (90) 98 08/30/20 21:00 Room Air 08/30/20 20:00 98.5 80 18 111/76 (88) 98 08/30/20 18:16 82 126/85 (99) 08/30/20 16:03 98.3 87 19 98/71 (80) 99 08/30/20 16:02 98.3 08/30/20 12:18 98.2 93 16 94/60 (71) 98 I&O Intake and Output 08/30/20 08/31/20 19:00 07:00 Intake Total 1875 ml 75 ml Output Total 300 ml Balance 1875 ml -225 ml Intake Oral 1200 ml IV Total 675 ml 75 ml Output Urine Total 300 ml # Voids 2 2 Dressing: dry Wound: clean Cardiovascular: RSR Respiratory: clear, decreased breath sounds Abdomen: soft, non-tender, present bowel sounds, non-distended Extremities: no edema, no tenderness, no cyanosis Plan Problems: (1) Abdominal pain Assessment & Plan: 60F with anemia c/o pain all over including 8/10 abd pain requesting more pain medication IV instead of oral po meds. no n/v/f/c. hungry tolerating diet. passing flatus. transfused prbc and h/h improved. stool studies pending. GI eval noted. abd exam benign. no acute abdomen. soft nt/nd bs+. has bowel function. no acute surgical intervention planned. okay for diet. AM kub. trend labs. will follow with exam and recs. thank you Some emphysematous changes noted within the lung bases. Mild atelectasis is noted. The liver and spleen are homogeneous. Gallbladder is without sludge or stone and there is no wall thickening. The pancreas is unremarkable. Adrenals are normal in morphology. Small left renal cyst noted. Small bowel loops are nondistended. The colon contains fluid and some air fluid levels. Question history of diarrheal disease. No focal obstruction noted. The patient is thin with very little intra-abdominal fat and bowel loops are tightly coalescent. Appendix is not distinctly seen. There is no free fluid or free air. No pathologic adenopathy demonstrated. Urinary bladder appears unremarkable. There is no suspicious superficial soft tissue or osseous abnormality. IMPRESSION: FLUID AND AIR-FLUID LEVELS NOTED WITHIN THE COLON. QUESTION HISTORY OF DIARRHEAL DISEASE. OTHERWISE NO SIGN OF ACUTE DISEASE IN THE ABDOMEN AND PELVIS. EMPHYSEMATOUS CHANGES IN THE LUNG BASES. SMALL LEFT RENAL CYST. (2) UTI (urinary tract infection) (3) Cachexia (4) Neuropathy (5) GERD (gastroesophageal reflux disease) (6) Acute anemia Ramos Nathan Aug 31, 2020 12:13
--- NOTE | 2020-08-31 12:50 | Discharge Summary ---
Discharge Summary Hospital Course Date of Admission Aug 24, 2020 at 16:25 Date of Discharge 08/31/20 Admitting Diagnosis ANEMIA HPI Cat Felix is a 60 year old female who was admitted on Aug 24, 2020 at 16:25 for Anemia Consultations GI,Nephrology Hospital Course 60-year-old female presents from nursing facility for evaluation of acute (symptomatic) on chronic anemia plus severe protein calorie malnutrition, found to be fecal occult bleed positive, improved after 2 units RBC, GI wanted to do EGD and colonoscopy however patient adamantly refused, risk of undiagnosed malignancy (colon cancer) explained and she expressed understanding and released myself, other physicians and [facility] [place] from liability - patient understood that she could have undetected cancer but still refused endoscopic workup. CT A/P was negative. Also found to have citrobacter UTI, completed course of IV antibiotic. Stable for discharge back to SNF, Dr. Martinez to follow as outpatient #Symptomatic acute on chronic anemia, improved #Acute blood loss anemia, POA #Fecal occult blood pos #Headache #Citrobacter UTI #Chronic pain #Peripheral neuropathy #Bitemporal wasting, hypoalbuminemia #Severe protein calorie malnutrition I spent40 minutes on this patient's discharge, and 20minutes was dedicated to counseling and/or care coordination. D/w RN, consultants Discharge Medications Continued Medications: Acetaminophen* (Acetaminophen 325MG Tablet*) 325 Mg Tablet 650 MG ORAL Q4H PRN for fever, TAB Diphenhydramine Hcl* (Diphenhydramine Hcl*) 25 Mg Capsule 25 MG ORAL Q6H PRN for Itching, #30 CAP 0 Refills Docusate Sodium* (Docusate Sodium*) 100 Mg Capsule 100 MG ORAL TWICE A DAY for BM, CAP Famotidine* (Pepcid 20mg tablet*) 20 Mg Tablet 20 MG ORAL TWICE A DAY for Gerd, #60 TAB 0 Refills Fluocinonide/Emollient (Fluocinonide-E 0.05% Cream) 15 Gm Cream..g. 15 GM TP DAILY for skin excoriations, GM Gabapentin* (Gabapentin*) 100 Mg Capsule 300 MG ORAL THREE TIMES A DAY for nerve pain, CAP Hydroxyzine Hcl (Hydroxyzine Hcl) 10 Mg Tablet 10 MG PO TID for dermatitis Lorazepam* (Ativan*) 0.5 Mg Tablet 0.5 MG ORAL Q4HR PRN for anxiety for 14 days until 09/01/20 Mirtazapine* (Mirtazapine*) 7.5 Mg Tablet 7.5 MG ORAL BEDTIME for depression, TAB Multivitamin (Multiple Vitamins) 1 Each Tablet 1 EACH PO DAILY for supplement, TAB Ondansetron Odt* (Zofran Odt*) 4 Mg Tab.rapdis 4 MG BC EVERY 8 HOURS PRN for Nausea & Vomiting Oxycodone Hcl* (Oxycodone Hcl*) 5 Mg Capsule 5 MG ORAL Q4H PRN for For Pain, #10 CAP 0 Refills Petrolatum,White (Aquaphor) 99 Gm Oint...g. 99 GM TP Q6HR for dry skin, GM Polyethylene Glycol 3350* (Miralax*) 17 Gm Powd.pack 17 GM ORAL DAILY for BM, PACKET Sennosides (Senna Laxative) 8.6 Mg Tablet 17.2 MG PO BEDTIME for BM, TAB Thiamine Hcl* (Vitamin B-1*) 100 Mg Tablet 200 MG ORAL DAILY for supplement, #30 TAB 0 Refills Triamcinolone Acetonide (Triamcinolone Acetonide 0.1% Oint*) 15 Gm Oint...g. 0 TP THREE TIMES A DAY for skin infection, GM Discharge Condition Upon Discharge: improving Discharge Vital Signs Last Vital Signs Date Time Temp Pulse Resp B/P (MAP) Pulse Ox O2 Delivery O2 Flow Rate FiO2 08/31/20 12:40 98.1 08/31/20 12:00 92 18 114/72 (86) 99 08/31/20 09:00 Room Air Discharge Disposition Patient was discharged to SNF Discharge Diagnoses: (1) UTI (urinary tract infection) (2) Acute anemia Flaquito Villanueva MD Aug 31, 2020 12:50
[2020-08-31] MEDS: cefTRIAXone 1 GM in D5W 55 ML IVPB SCH (15:07)
--- NOTE | 2020-08-31 15:37 | NUR ---
*-*DISCHARGE PLANNING*-* PATIENT HAS BEEN REFERRED TO: [facility] P: [phone] Bishop GONZALEZ ON HER CELL PHONE, WHO STATED, WAITING FOR AUTHORIZATION FROM INSURANCE, CALL BACK.
--- NOTE | 2020-08-31 15:43 | NUR ---
*-*DISCHARGE PLANNING*-* PATIENT HAS BEEN REFERRED TO: [facility] P: [phone] PLACED A CA LL TO LISA'S CELL PHONE NO ANSWER, LEFT VOICE MESSAGE.
--- NOTE | 2020-08-31 15:43 | NUR ---
*-*DISCHARGE PLANNING*-* PATIENT HAS BEEN REFERRED TO: [facility] P: [phone] S/W JYOTI, ADMISSION NOT AVAILABLE, CALL THEIR CELL PHONE.
--- NOTE | 2020-08-31 15:46 | NUR ---
*-*DISCHARGE PLANNING*-* PATIENT HAS BEEN REFERRED TO: [facility] P: [phone] PLACED A CALL TO LISA IN ADMISSIONS, NO ANSWER, LEFT VOICE MESSAGE.
--- NOTE | 2020-08-31 15:58 | NUR ---
*-*DISCHARGE PLANNED*-* PATIENT HAS BEEN ACCEPTED AND WILL BE DISCHARGE BACK TO: [facility] P: [phone] FOR NURSE TO NURSE TO NURSE REPORT ROOM# 5.A [facility] SET FOR 5PM S/W YOVANY [id number]. S/W PATIENTS SON CHAVO LAMB, WHO IS IN AGREEMENT WITH DISCHARGE PLAN.
[2020-08-31 16:00] VITALS: BP 119/75
--- NOTE | 2020-08-31 16:39 | NUR ---
*-*DISCHARGE PLANNED*-* PATIENT HAS BEEN ACCEPTED AND WILL BE DISCHARGE BACK TO: [facility] P: [phone] FOR NURSE TO NURSE TO NURSE REPORT ROOM# 5.A REQUESTING NEXT AVAILABLE AMBULANCE TRANSPORTATION THROUGH [place] CALL [facility] PH:[phone] OPT.4 S/W GWYN WILL CALL BACK TO CONFIRM TIME OF [facility] [employer]. S/W PATIENTS SON CHAVO LAMB, WHO IS IN AGREEMENT WITH DISCHARGE PLAN.
--- NOTE | 2020-08-31 16:44 | NUR ---
*-*DISCHARGE PLANNED*-* PATIENT HAS BEEN ACCEPTED AND WILL BE DISCHARGE BACK TO: [facility] P: [phone] FOR NURSE TO NURSE TO NURSE REPORT ROOM# 5.A REQUESTING NEXT AVAILABLE AMBULANCE TRANSPORTATION THROUGH [place] CALL [facility] PH:[phone] OPT.4 S/W GWYN WILL CALL BACK TO CONFIRM TIME OF [facility]SP[facility]. REFERENCE# [id number] S/W PATIENTS SON CHAVO LAMB, WHO IS IN AGREEMENT WITH DISCHARGE PLAN.
--- NOTE | 2020-08-31 18:03 | NUR ---
NURSE NOTES: I called and gave report to [facility]; patient waiting to be picked by ambulance;
--- NOTE | 2020-08-31 18:46 | NUR ---
NURSE NOTES: Patient discharge to [facility]; report given to [place]; patient stable and left the floor via gurney; belonging sent with patient; IV access and name tag removed; wound care provided and pictures taken; patient's daughter aware that patient discharge;
== END 2020-08-31 18:30 | DRG 663 ==
LOC: EDBD 13:48 → EMR 15:45 → 4E 16:25 → EDBEDREQ 18:48
PROC: 30233N1 Transfusion of Nonautologous Red Blood Cells into Peripheral Vein, Percutaneous Approach (ICD-10-PCS; principal; 2020-08-24)
DX: D62 Acute posthemorrhagic anemia (principal); N39.0 Urinary tract infection, site not specified; E43 Unspecified severe protein-calorie malnutrition; Z68.1 Body mass index [BMI] 19.9 or less, adult; K21.9 Gastro-esophageal reflux disease without esophagitis; G62.9 Polyneuropathy, unspecified; Z88.6 Allergy status to analgesic agent; Z88.1 Allergy status to other antibiotic agents; Z88.8 Allergy status to other drugs, medicaments and biological substances; R51.9 Headache, unspecified; B96.89 Other specified bacterial agents as the cause of diseases classified elsewhere; G89.29 Other chronic pain; F17.200 Nicotine dependence, unspecified, uncomplicated; R19.5 Other fecal abnormalities
CPT/HCPCS: 36415; 70450; 74018; 74177; 80048; 80053; 81003; 82150; 82270; 82378; 83540; 83550; 83690; 85007; 85025; 85610; 85730; 86850; 86900; 86901; 86920; 87086; 87181; 99291